=== PATIENT | female | born 1940 | race Caucasian/White ===

== ENCOUNTER 2019-11-12 20:53 | Inpatient (IN) | payer OTHER, MEDICARE ==
--- NOTE | 2019-11-12 21:10 | PDOC ---
Attending Attestation - Resident Resident Name: Alexander Jordan - ED Attending Attestation I have performed the following: I have examined & evaluated the patient, The case was reviewed & discussed with the resident, I agree w/resident's findings & plan - HPI HPI: 11/12/19 23:36 see resident exam - Physicial Exam PE: 11/12/19 23:36 see resident hpi - Medical Decision Making 11/12/19 23:45 79-year-old female with history of bilateral knee replacements status post mechanical fall with large laceration overlying the right patellar region Due to patient's age and history of surgery a CT scan of the brain as well as right knee as well as plain films of the right tib-fib and knee regions were all obtained There is no large displaced fracture though there is a fragment off the medial aspect of the distal femur that is not well imaged secondary to artifact Will call [facility] for further recommendations regarding wound care Ancef 1 g IV Discharge - Discharge Information Problems reviewed: Yes Clinical Impression/Diagnosis: Laceration of knee Condition: Fair - Follow up/Referral Referrals: Vero Everett MD [Primary Care Provider] - - Patient Discharge Instructions - Post Discharge Activity
[2019-11-12] MEDS ORDERED: DIPHTH,PERTUSS(ACELL),TET 0.5 ML DISP.SYRIN IM ONE ×2 (21:28→21:33)
[2019-11-12] MEDS ORDERED: ACETAMINOPHEN 325 MG TABLET (FP) PO ONE ×2 (21:34→21:35)
--- NOTE | 2019-11-12 21:53 | PDOC ---
History of Present Illness - General Chief Complaint: Injury Stated Complaint: FALL, RIGHT KNEE LACERATION Time Seen by Provider: 11/12/19 21:09 - History of Present Illness Initial Comments: 11/12/19 21:47 79 F with HTN, HLD, COPD, CHF BIBA, bilateral knees replacement, from home after a fall. She had a witness mechanical fall on a sticky floor. Minimal bleeding, horizontal cut on the right knee. Her last right knee replacement was on March of this year. Patient has full sensation on the legs,limited ROM on the right knee due the cut. Denies Headache, chest pain, F/C/N/V/D. Not on blood thinner. Denies Head hitting, LOC. Ortho surgeon: Dao Trejo in [facility]. PMHX: as in HPI PSHX: bilat knees replacement. Meds: Allergies: doxycycline. Tob: denies Etoh: denies Rec drugs: denies ROS GENERAL/CONSTITUTIONAL: No fever or chills. No weakness. HEAD, EYES, EARS, NOSE AND THROAT: No change in vision. No ear pain or discharge. No sore throat. CARDIOVASCULAR: No chest pain or shortness of breath RESPIRATORY: No cough, wheezing, or hemoptysis. GASTROINTESTINAL: No nausea, vomiting, diarrhea or constipation. GENITOURINARY: No dysuria, frequency, or change in urination. MUSCULOSKELETAL: +Right knee pain. No neck or back pain. SKIN: No rash NEUROLOGIC: No headache, vertigo, loss of consciousness, or change in strength/sensation. ENDOCRINE: No increased thirst. No abnormal weight change HEMATOLOGIC/LYMPHATIC: No anemia, easy bleeding, or history of blood clots. ALLERGIC/IMMUNOLOGIC: No hives or skin allergy. PE: BP 191/90 GENERAL: Awake, alert, and fully oriented, in no acute distress. OBESE. HEAD: No signs of trauma, normocephalic, atraumatic EYES: PERRLA, EOMI, sclera anicteric, conjunctiva clear ENT: Auricles normal inspection, hearing grossly normal, nares patent, oropharynx clear without exudates. Moist mucosa NECK: Normal ROM, supple, no lymphadenopathy, JVD, or masses LUNGS: No distress, speaks full sentences, clear to auscultation bilaterally HEART: Regular rate and rhythm, normal S1 and S2, no murmurs, rubs or gallops, peripheral pulses normal and equal bilaterally. ABDOMEN: Soft, nontender, normoactive bowel sounds. No guarding, no rebound. No masses EXTREMITIES : pitting edema. right knee horizontal wound 5 cm deep, showing subcutaneous tissues, minimal bleeding. neurovascular intact, able to do straight leg raise, unable to bend knee due to pain. NEUROLOGICAL: Cranial nerves II through XII grossly intact. Normal speech, normal gait, no focal sensorimotor deficits SKIN: Warm, Dry, normal turgor, no rashes or lesions noted Past History - Medical History Allergies/Adverse Reactions: Allergies Allergy/AdvReac Type Severity Reaction Status Date / Time doxycycline Allergy Hives Verified 11/12/19 21:08 Home Medications: Ambulatory Orders Simvastatin [Zocor] 20 mg PO DAILY 08/02/11 Cetirizine HCl [Zyrtec -] 10 mg PO DAILY 10/21/14 Pregabalin [Lyrica -] 300 mg PO BID 10/21/14 Furosemide [Lasix -] 40 mg PO DAILY #30 tablet 05/01/15 Cholecalciferol (Vitamin D3) [Vitamin D3] 1,000 unit PO DAILY 11/11/15 Ferrous Sulfate [Feosol] 325 mg PO DAILY 11/11/15 Ranitidine HCl [Zantac] 150 mg PO DAILY 11/11/15 Benzonatate 100 mg PO PRN PRN 02/01/16 Losartan Potassium 25 mg PO DAILY 02/01/16 Docusate Sodium [Colace] 100 mg PO HS 11/13/19 Umeclidinium Brm/Vilanterol Tr [Anoro Ellipta 62.5-25 Mcg INH] 1 each IH DAILY 11/13/19 Anemia: Yes Asthma: No Cancer: Yes (BASAL CELL CA NOSE) Cardiac Disorders: No CVA: No COPD: No CHF: No Dementia: No Diabetes: No GI Disorders: Yes (GERD,HIATAL HERNIA) Disorders: No HTN: Yes Hypercholesterolemia: Yes Liver Disease: No Seizures: No Thyroid Disease: No - Surgical History Abdominal Surgery: No Appendectomy: No Cardiac Surgery: No Cholecystectomy: No Lung Surgery: No Neurologic Surgery: No Orthopedic Surgery: Yes (L KNEE ARTHROSCOPY) - Immunization History Immunization Up to Date: Yes - Psycho-Social/Smoking History Smoking History: Never smoked Have you smoked in the past 12 months: No If you are a former smoker, when did you quit?: 1984 Information on smoking cessation initiated: No - Substance Abuse Hx (Audit-C & DAST Scrn) How often the patient has a drink containing alcohol: Monthly or less Number of drinks the patient has on a typical day: 1 or 2 How often the patient has six or more drinks on one occasion: Less than monthly Score: In Men: 4 or > Positive; In Women: 3 or > Positive: 2 Screen Result (Pos requires Nsg. Audit-10AR): Negative In the last yr the pt used illegal drug/Rx for NonMed reason: No Score: Yes response is considered Positive: 0 Screen Result (Positive result requires Nsg. DAST-10): Negative *Physical Exam - Vital Signs Last Vital Signs Temp Pulse Resp BP Pulse Ox 98.1 F 98 H 18 191/86 H 96 11/12/19 20:55 11/12/19 20:55 11/12/19 20:55 11/12/19 20:55 11/12/19 20:55 Procedures - Laceration/Wound Repair Right Knee Wound Length: 5.0 to 7.5 cm Wound Explored: clean Wound's Depth, Shape: flap Irrigated w/ Saline: Yes Anesthesia: 2% Lidocaine Amount of Anesthetic (ccs): 10 Wound Debrided: moderate Wound Repaired With: Sutures Suture Size/Type: 3:0, proline Number of Sutures: 30 Layer Closure: Yes Sterile Dressing Applied: Yes ED Treatment Course - LABORATORY CBC & Chemistry Diagram: 11/15/19 06:41 11/15/19 06:41 - RADIOLOGY Radiology Studies Ordered: Category Date Time Status HEAD CT WITHOUT CONTRAST [CT] Stat CT Scan 11/12/19 21:29 Ordered KNEE 3 POS-RIGHT [RAD] Stat Radiology 11/12/19 21:28 Ordered LEG TIB/FIB-RIGHT [RAD] Stat Radiology 11/12/19 21:28 Ordered Medical Decision Making - Medical Decision Making 11/12/19 21:58 concerning for fx Xray of knees 3views, tib/fib, sunrise view. + CAT head noncontrast+ cat scan of lower extremity. tetanus booster +tylenol PO 11/12/19 21:59 11/12/19 23:[address] Trejo in regard to the questionable read of CT: small bony density of the inferomedial region of medical femoral epicondyle , hard to see due to metallic artifact. He said call ortho in house to look at it, possible push contrast to see if leaking, and wash out. 11/12/19 23:19 11/13/19 00:27 Paged Ted . Awaiting. 11/13/19 05:34 Ortho came down to see her. Proceeded to repair. Pain control: tylenol, morphine 4 Antibiotics: ancef. Admit to Internal medicine team for IV antibiotics per ortho. Discharge - Discharge Information Problems reviewed: Yes Clinical Impression/Diagnosis: Laceration of knee History of knee replacement Qualifiers: Laterality: left Qualified Code(s): Z96.652 - Presence of left artificial knee joint Condition: Fair - Follow up/Referral - Patient Discharge Instructions - Post Discharge Activity
[2019-11-12] MEDS ORDERED: ACETAMINOPHEN 325 MG TABLET (FP) ONE (22:06)
[2019-11-13] MEDS ORDERED: ceFAZolin 2 GRAM PREMIX BAG IVPB STA (00:09)
[2019-11-13] MEDS ORDERED: CEFAZOLIN 2 GM/D5W 2 GM/50 ML ML IVPB ONE (01:00)
[2019-11-13 01:38] LABS: EOS % 2.6 % (0-4.5); HEMATOCRIT 31.7 % (32.4-45.2); HEMOGLOBIN 10.4 GM/dL (10.7-15.3); LYMPH % 11.1 % (8-40); MCH 31.9 pg (25.7-33.7); MCHC 32.7 g/dl (32.0-36.0); MEAN CELL VOLUME 97.6 fl (80-96); MEAN PLT VOLUME 11.7 fl (7.5-11.1); MONO % 8.9 % (3.8-10.2); NEUT % 76.4 % (42.8-82.8); PLATELET COUNT 143 K/MM3 (134-434); RBC 3.25 M/mm3 (3.60-5.2); RDW 14.1 % (11.6-15.6); WHITE BLOOD COUNT 11.6 K/mm3 (4.0-10.0)
[2019-11-13 01:56] LABS: ALBUMIN 3.7 g/dl (3.4-5.0); BILIRUBIN,TOTAL 0.1 mg/dL (0.2-1); BLOOD UREA NITROGEN 47.9 mg/dL (7-18); CALCIUM 9.4 mg/dL (8.5-10.1); CREATININE 1.7 mg/dL (0.55-1.3); POTASSIUM 4.6 mmol/L (3.5-5.1); TOT PROT 7.1 g/dl (6.4-8.2)
[2019-11-13 02:10] LABS: INR 0.95 (0.83-1.09); PROTHROMBIN TIME (PATIENT) 11.2 SEC (9.7-13.0)
[2019-11-13 02:13] LABS: ACTIVATED PTT 28.9 SECONDS (25.2-36.5)
[2019-11-13] MEDS ORDERED: LIDOCAINE HCL 2% (20ML MULTI-DOSE VIAL) ONE (02:39)
[2019-11-13] MEDS ORDERED: morphine SULFATE 4 MG/ML VIAL ONE (02:43)
[2019-11-13] MEDS ORDERED: morphine CARPU-JECT 4 MG/1 ML DISP.SYRIN IVPUSH ONE (02:43)
--- NOTE | 2019-11-13 03:10 | CONSULT ---
Consult - text type - Consultation Consultation Note: ORTHOPEDIC SURGERY CONSULTATION NOTE Department of Orthopedic Surgery HISTORY OF PRESENT ILLNESS Ms. Arias is a 79 year old female with a pmhx of HTN, HLD, COPD, CHF BIBA, bilateral knees replacement She presents to [facility] ER after a witnessed mechanical fall onto right knee, now with a laceration over her knee. The orthopedic service was consulted for a rule out traumatic arthrotomy. The injury occurred at home this evening. The patient notes pain and laceration over her right anterior knee. She has a history of bilateral knee replacements, the right knee was done in March [address] Trejo at [facility]. Denies any other injuries. Denies numbness, tingling or other constitutional complaints. Denies tobacco use, drug use, alcohol abuse. The patient lives with family and uses no assistive devices at baseline. FAMILY HISTORY non-contributory REVIEW OF SYMPTOMS A twelve-point review of systems was performed and was negative except as noted in HPI. PHYSICAL EXAM Constitutional: Alert and oriented to person, place, and time. Appears well-developed and well-nourished. No acute distress, appropriate mood and affect. Right Upper Extremity: Skin warm, dry, and intact; no lesions, rashes or ulcers noted. Muscle mass equal and symmetric to contralateral side. No atrophy noted. No masses or effusions noted. No tenderness to palpation all joints; nontender throughout rest of extremity. Full passive and active ROM, free from pain. Joints stable with no pathologic laxity. M/R/U/MSK/AX motor intact; SILT distally; 2+ radial pulses; Cap refill brisk. Tone and reflexes normal. Left Upper Extremity: Skin warm, dry, and intact; no lesions, rashes or ulcers noted. Muscle mass equal and symmetric to contralateral side. No atrophy noted. No masses or effusions noted. No tenderness to palpation all joints; nontender t hroughout rest of extremity. Full passive and active ROM, free from pain. Joints stable with no pathologic laxity. M/R/U/MSK/AX motor intact; SILT distally; 2+ radial pulses; Cap refill brisk. Tone and reflexes normal. Right Lower Extremity: Skin warm, dry. There is a transverse laceration approxmiately 10 cm over the patella. There is a healed vertical incision consistent with knee replacement surgery history, healed and no signs of infection. Muscle mass equal and symmetric to contralateral side. No atrophy noted. No masses or effusions noted. Tender to palpation over the incision. nontender throughout rest of extremity. LROM at knee secondary to pain and laceration. No cords or calf tenderness. No significant calf/ankle edema. Full passive and active ROM of the hip and ank le and foot, free from pain. EHL/TA/GS motor intact; SILT distally; 2+ DP pulses; Cap refill brisk. Tone and reflexes normal. Left Lower Extremity: Skin warm, dry, and intact; no lesions, rashes or ulcers noted. Muscle mass equal and symmetric to contralateral side. No atrophy noted. No masses or effusions noted. No tenderness to palpation all joints; nontender throughout rest of extremity. No cords or calf tenderness No significant calf/ankle edema. Full passive and active ROM, free from pain. Joints stable with no pathologic laxity. EHL/TA/GS motor intact; SILT distally; 2+ DP pulses; Cap refill brisk. Tone and reflexes normal. 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 Hx Alcohol Use No ADL Independent History of Recent Travel No Allergies Allergy/AdvReac Type Severity Reaction Status Date / Time doxycycline Allergy Hives Verified 11/12/19 21:08 Vital Signs (last) Temp Pulse Resp BP Pulse Ox 98.1 F 85 16 183/79 H 97 11/13/19 02:52 11/13/19 02:52 11/13/19 02:52 11/13/19 02:52 11/13/19 02:52 Intake and Output 11/11/19 11/12/19 11/13/19 23:59 23:59 23:59 Other: Weight 210 lb Height 5 ft 2 in Body Mass Index (BMI) 38.4 Weight Measurement Method Est/Stated by Patient Laboratory 11/13/19 01:26 11/13/19 01:26 PT with INR 11.20 SEC (9.7-13.0) 11/13/19 01:46 PTT (Actin FS) 28.9 SECONDS (25.2-36.5) 11/13/19 01:46 IMAGING I personally reviewed all radiographs, CT, and other imaging. They demonstrate no fractures, dislocations, or bony lesions. The radiographs demonstrate adequately placed total knee replacement with no signs of fracture or loosening. The CT shows subcutaneous air, without extension or tracking into the joint and without clear acute fracture. Limited study due to metallic prosthesis. PROCEDURE After informed verbal consent was obtained, a saline load test was initiated for the right knee. Using strict sterile precautions, 5 cc's of 2% Lidocaine was injected into the subcutaneous skin at the location of the superolateral inj ection site. Consequently, again after strict sterile precautions using several betadine swabs to the injection site, 150cc's of sterile normal saline was injected into the joint via a superolateral injection site using an 18 gauge needle. There was no extravasation of the fluid from the open laceration, approximately 50cc's of fluid was able to be aspirated afterwards. This concluded the saline load test, which was negative for communication of the joint and the laceration. Patient tolerated procedure well. ASSESSMENT AND PLAN Ms. Arias is a 79 year old female presenting status post mechanical fall with a subcutaneous laceration with no communication with the joint. Saline load test was negative for arthrotomy. We have reviewed the imaging and clinical findings in detail, as well as their potential implications. We agreed on the following plan: 1. Pain control 2. DVT ppx 3. WBAT RLE 4. Would recommend bedside irrigation and primary closure of the laceration in the ER. 5. Recommend antibiotics for soft tissue laceration 6. Patient should follow up with Dr. Trejo (original orthopedic surgeon who performed right total knee replacement) within the next 2 days. 7. No further orthopedic surgical intervention at this time. The plan was discussed with the patient and her at bedside. The patient was informed of the risk of subcutaneous infection, which could in turn still infect her knee joint. Therefore close outpatient follow up with her orthopedic surgeon and primary care physician is highly recommended for observation. All questions were answered. Thank you for involving our team in the care of this patient.
[2019-11-13] MEDS ORDERED: LOSARTAN POTASSIUM 25 MG TABLET PO ONE (05:37)
--- NOTE | 2019-11-13 05:46 | PN ---
Physical Exam: SUBJECTIVE: Patient seen and examined OBJECTIVE: Vital Signs Period Temp Pulse Resp BP Sys/Villa Pulse Ox Last 24 Hr 98.1 F-98.1 F 85-98 16-18 183-191/79-86 96-97 GENERAL: The patient is awake, alert, and fully oriented, in no acute distress. HEAD: Normal with no signs of trauma. EYES: PERRL, extraocular movements intact, sclera anicteric, conjunctiva clear. No ptosis. ENT: Ears normal, nares patent, oropharynx clear without exudates, moist mucous membranes. NECK: Trachea midline, full range of motion, supple. LUNGS: Breath sounds equal, clear to auscultation bilaterally, no wheezes, no crackles, no accessory muscle use. HEART: Regular rate and rhythm, S1, S2 without murmur, rub or gallop. ABDOMEN: Soft, nontender, nondistended, normoactive bowel sounds, no guarding, no rebound, no hepatosplenomegaly, no masses. EXTREMITIES: 2+ pulses, warm, well-perfused, no edema. NEUROLOGICAL: Cranial nerves II through XII grossly intact. Normal speech, gait not observed. PSYCH: Normal mood, normal affect. SKIN: Warm, dry, normal turgor, no rashes or lesions noted Laboratory Results - last 24 hr 11/13/19 11/13/19 11/13/19 01:26 01:26 01:46 WBC 11.6 H RBC 3.25 L Hgb 10.4 L Hct 31.7 L D MCV 97.6 H MCH 31.9 D MCHC 32.7 RDW 14.1 Plt Count 143 D MPV 11.7 H D Absolute Neuts (auto) 8.9 H Neutrophils % 76.4 Lymphocytes % 11.1 D Monocytes % 8.9 Eosinophils % 2.6 D Basophils % 1.0 D Nucleated RBC % 0 PT with INR 11.20 INR 0.95 PTT (Actin FS) 28.9 Sodium 143 Potassium 4.6 Chloride 110 H Carbon Dioxide 27 Anion Gap 6 L BUN 47.9 H Creatinine 1.7 H Est GFR (CKD-EPI)AfAm 33.13 Est GFR (CKD-EPI)NonAf 28.59 Random Glucose 115 H Calcium 9.4 Total Bilirubin 0.1 L AST 28 ALT 21 Alkaline Phosphatase 91 Total Protein 7.1 Albumin 3.7 Active Medications Generic Name Dose Route Start Last Admin Trade Name Freq PRN Reason Stop Dose Admin Acetaminophen 1,000 mg 11/13/19 05:07 Ofirmev Injection - IVPB 11/14/19 05:08 Q6H PRN PAIN LEVEL 6-10 Docusate Sodium 100 mg 11/13/19 22:00 Colace - PO HS JAVY Furosemide 40 mg 11/13/19 10:00 Lasix - PO DAILY [facility] Heparin Sodium (Porcine) 5,000 unit 11/13/19 06:00 Heparin - SQ TID [facility] Ampicillin Sodium/Sulbactam 100 mls @ 200 mls/hr 11/13/19 09:00 Sodium 3 gm/ Sodium Chloride IVPB Q6H-IV JAVY Lactated Ringer's 1,000 ml in 1,000 mls @ 42 mls/hr 11/13/19 05:45 Lactated Ringers Solution IV ASDIR JAVY Losartan Potassium 25 mg 11/13/19 10:00 Cozaar - PO DAILY JAVY Losartan Potassium 25 mg 11/13/19 05:37 Cozaar - PO 11/13/19 05:38 ONCE ONE Morphine Sulfate 2 mg 11/13/19 05:34 Morphine Injection - IVPUSH Q4H PRN PAIN LEVEL 6-10 Non-Formulary Medication 20 mg 11/13/19 10:00 Simvastatin [Zocor] PO DAILY [facility] Non-Formulary Medication 300 mg 11/13/19 10:00 Pregabalin [Lyrica -] PO BID [facility] ASSESSMENT/PLAN: Pt is a 79 yo F with PMH of HTN, HLD, COPD, CHF, CKD Stage 4, trigeminal neuralgia and b/l knee replacements (2016; 2019) being admitted for R knee subcutaneous laceration (s/p mechanical fall) with concern for possible soft tissue infection. #R Knee Subcutaneous Laceration (s/p mechanical fall) Laceration is horizontal (approximately 12-15 cm) and approximately 5 cm deep Laceration has now been sutured - Ortho onboard; pt examined with no communication to the joint, no surgical intervention needed at this time; recommended antibiotics for soft tissue infection - pt started on IV Unasyn 3 q6h - pain control with IV Morphine 2 q4h - gentle hydration with LR @ 42 cc/hr #Hx of Stage 4 CKD Pt followed by legal billing specialist Dr. Shelton outpatient Reports that this is her new baseline - can consider nephrology consult - monitor lytes, BUN, Cr #Hx of CHF - continue home po lasix 40 daily - clarify as pt reports taking it every other day.\ ATTENDING PHYSICIAN STATEMENT I saw and evaluated the patient. I reviewed the resident's note and discussed the case with the resident. I agree with the resident's findings and plan as documented. SUBJECTIVE: OBJECTIVE: ASSESSMENT AND PLAN:
[2019-11-13] MEDS ORDERED: MORPHINE SULFATE 2 MG/ML VIAL IVPUSH PRN (05:50)
[2019-11-13] MEDS ORDERED: LOSARTAN POTASSIUM 50 MG TABLET (FP) ONE (05:57)
[2019-11-13] MEDS ORDERED: HEPARIN NA (PORCINE) 5,000 UNITS/ML 1ML VIAL ONE (05:57)
[2019-11-13] MEDS: LACTATED RINGERS SOLUTION 1,000 ML/1,000 ML INFUS.BAG IV SCH (06:13)
--- NOTE | 2019-11-13 06:13 | HP ---
CHIEF COMPLAINT: R knee laceration PCP: Dr. Everett HISTORY OF PRESENT ILLNESS: Pt is a 79 yo F with PMH of HTN, HLD, COPD, CHF, CKD Stage 4, trigeminal neuralgia and b/l knee replacements (2016; 2019) who was BIBA after a witnessed mechanical fall at home on a sticky floor. Pt sustained a large R knee ho rizontal laceration. Denies fever, chills, head trauma, loss of consciousness, palpitations for or after the fall, lightheadedness, headache, chest pain, shortness of breath, nausea, vomiting, changes in urinary habits, constipation, and diarrhea. ER course was notable for: (1) CT Head negative (2) CT of lower extremity with subcutaneous air without extension or tracking into the joint and without clear acute fracture. (3) Pt given IV morphine and laceration sutured up Recent Travel: none Sick Contacts: none PAST MEDICAL HISTORY: as per hpi PAST SURGICAL HISTORY: as per hpi Family Hx - none Social History: Pt lives with at home. Independent in most daily activities. Smoking: denies Alcohol: denies Drugs: denies Allergies doxycycline Allergy (Verified 11/12/19 21:08) Hives HOME MEDICATIONS: Home Medications Medication Instructions Recorded Simvastatin [Zocor] 20 mg PO DAILY 08/02/11 Cetirizine HCl [Zyrtec -] 10 mg PO DAILY 10/21/14 Pregabalin [Lyrica -] 300 mg PO BID 10/21/14 Furosemide [Lasix -] 40 mg PO DAILY #30 tablet 05/01/15 Cholecalciferol (Vitamin D3) 1,000 unit PO DAILY 11/11/15 [Vitamin D3] Ferrous Sulfate [Feosol] 325 mg PO DAILY 11/11/15 Ranitidine HCl [Zantac] 150 mg PO DAILY 11/11/15 Benzonatate 100 mg PO PRN PRN 02/01/16 Losartan Potassium 25 mg PO DAILY 02/01/16 Docusate Sodium [Colace] 100 mg PO HS 11/13/19 Umeclidinium Brm/Vilanterol Tr 1 each IH DAILY 11/13/19 [Anoro Ellipta 62.5-25 Mcg INH] REVIEW OF SYSTEMS as per HPI. PHYSICAL EXAMINATION Vital Signs - 24 hr 08/19/20 08/20/20 08/20/20 20:55 02:52 04:51 Temperature 98.1 F 98.1 F Pulse Rate 98 H Pulse Rate [ 85 Left] Respiratory 18 16 Rate Blood Pressure 191/86 H Blood Pressure 183/79 H [Arm] O2 Sat by Pulse 96 97 96 Oximetry (%) GENERAL: Awake, alert, and fully oriented, in no acute distress. HEAD: Normal with no signs of trauma. EYES: Pupils equal, round and reactive to light, extraocular movements intact, sclera anicteric, conjunctiva clear. EARS, NOSE, THROAT: oropharynx clear without exudates. Moist mucous membranes. NECK: Normal range of motion, supple without lymphadenopathy, JVD, or masses. LUNGS: Breath sounds equal, clear to auscultation bilaterally. No wheezes, and no crackles. No accessory muscle use. HEART: Regular rate and rhythm, normal S1 and S2 without murmur, rub or gallop. ABDOMEN: Soft, nontender, not distended, normoactive bowel sounds MUSCULOSKELETAL: Moving all extremities except RLE equally and spontaneously; ROM of RLE limited due to laceration UPPER EXTREMITIES: 2+ pulses, warm, well-perfused. LOWER EXTREMITIES: 2+ pulses, warm, well-perfused. Some mild pitting edema. RLE with 10 cm laceration on R anterior knee. Minimal bleeding. No crepitus. NEUROLOGICAL: Cranial nerves II-XII intact. Normal speech. Normal gait. Sensation around laceration intact. PSYCHIATRIC: Cooperative. Good eye contact. Appropriate mood and affect. SKIN: Warm, dry, normal turgor. Laboratory Results - last 24 hr 11/13/19 11/13/19 11/13/19 01:26 01:26 01:46 WBC 11.6 H RBC 3.25 L Hgb 10.4 L Hct 31.7 L D MCV 97.6 H MCH 31.9 D MCHC 32.7 RDW 14.1 Plt Count 143 D MPV 11.7 H D Absolute Neuts (auto) 8.9 H Neutrophils % 76.4 Lymphocytes % 11.1 D Monocytes % 8.9 Eosinophils % 2.6 D Basophils % 1.0 D Nucleated RBC % 0 PT with INR 11.20 INR 0.95 PTT (Actin FS) 28.9 Sodium 143 Potassium 4.6 Chloride 110 H Carbon Dioxide 27 Anion Gap 6 L BUN 47.9 H Creatinine 1.7 H Est GFR (CKD-EPI)AfAm 33.13 Est GFR (CKD-EPI)NonAf 28.59 Random Glucose 115 H Calcium 9.4 Total Bilirubin 0.1 L AST 28 ALT 21 Alkaline Phosphatase 91 Total Protein 7.1 Albumin 3.7 ASSESSMENT/PLAN: Pt is a 79 yo F with PMH of HTN, HLD, COPD, CHF, CKD Stage 4, trigeminal neuralgia and b/l knee replacements (2016; 2019) being admitted for R knee subcutaneous laceration (s/p mechanical fall) with concern for possible soft tissue infection. #R Knee Subcutaneous Laceration (s/p mechanical fall) Laceration is horizontal (approximately 10 cm) and approximately 5 cm deep on the anterior aspect of her R knee. Laceration has now been sutured Lower ext CT showing subcutaneous air without extension or tracking into the joint and without clear acute fracture. Study limited d/t metallic prosthesis/ CT head negative - Ortho consulted by ED; pt examined with no communication to the joint, no surgical intervention needed at this time; recommended antibiotics for soft tissue infection - pt started on IV Unasyn 3 q6h - pain control with IV Morphine 2 q4h - gentle hydration with LR @ 42 cc/hr #Hx of Stage 4 CKD Pt followed by [employer] history teacher Dr. Shelton outpatient Pt reports that this is her new baseline - can consider nephrology consult - monitor lytes, BUN, Cr #Hx of CHF - continue home po lasix 40 daily - clarify as pt reports taking it every other day. #Hx of HTN BP elevated in ED; likely 2/2 pain and not having taken her BP medication that day - provide adequate pain control - continue home losartan 25 daily #Hx of HLD - continue home simvastatin 20 daily or equivalent #Hx of Trigeminal Neuralgia - continue home lyrica 300 mg bid #DVT Ppx - Heparin 5000 sq tid #FEN -F - LR @ 42 cc/hr -E - monitor; replete lytes prn -N - low sodium, low fat, renal diet #Dispo - admit to med-surg Family Medical History Family History: As Documented Visit type - Medication Review Med list reviewed for High Risk Meds patients 65 and older: Yes - Emergency Visit Emergency Visit: Yes ED Registration Date: 11/13/19 Care time: The patient presented to the Emergency Department on the above date and was hospitalized for further evaluation of their emergent condition. - New Patient This patient is new to me today: Yes Date on this admission: 11/13/19 - Critical Care Critical Care patient: No ATTENDING PHYSICIAN STATEMENT I saw and evaluated the patient. I reviewed the resident's note and discussed the case with the resident. I agree with the resident's findings and plan as documented. SUBJECTIVE: OBJECTIVE: ASSESSMENT AND PLAN:
[2019-11-13] MEDS: HEPARIN NA (PORCINE) 5,000 UNITS/ML 1ML VIAL SQ SCH ×3 (06:14→21:06)
--- NOTE | 2019-11-13 06:49 | PN ---
Teaching Attending Note Name of Resident: Joyce Candelaria ATTENDING PHYSICIAN STATEMENT I saw and evaluated the patient. I reviewed the resident's note and discussed the case with the resident. I agree with the resident's findings and plan as documented. SUBJECTIVE: 79 F with HTN, HLD, COPD, CHF, s/p b/l lnee replacement was BIBA after a fall on a sticky floor. She sustained left knee horizontal laceration. It was a mechanical fall. No dizziness, lightheadedness, headache, palpitation before or after the fall. She denies chest pain, shortness of breath, nausea,vomiting, fever, constipation, diarrhea. she c/o pain at knee laceration side OBJECTIVE: Last Vital Signs Temp Pulse Resp BP Pulse Ox 98.1 F 85 16 183/79 H 96 11/13/19 02:52 11/13/19 02:52 11/13/19 02:52 11/13/19 02:52 11/13/19 04:51 General Appearance: not in acute distress, obese HEENT: positive: EOMI, GOLDY, Normal ENT Inspection, Normal Voice Neck: positive: Trachea midline, Normal Thyroid Respiratory/Chest: positive: Lungs Clear b/l, no added sounds Cardiovascular: positive: Regular Rhythm, Regular Rate, S1, S2, No MRG Gastrointestinal/Abdominal: positive: Normal Bowel Sounds, Soft, non tender Musculoskeletal: right knee laceration wound 5 cm with exposed subcutaneous tissue, restricted ROM , R leg 1 + pitting g edema Neurologic: positive: animal caretaker II-XII NML intact, A&ox3, no focal neurologic deficit ASSESSMENT AND PLAN: s/p mechanical fall R knee laceration wound s/p suturing and closure HTN, HLD, COPD, CHF, CKD ? ALVAREZ on CKD macrocytic anemia Admit to floor Gentle hydration CXR Orthopedic consult appreciated. no surgical intervention. IV unasyn analgesia with morphine 2 mg q 4 PRN DVT ppx Resume home meds get records from patient's call person regarding work up and kidney function test. would Hold off on ALVAREZ work up for now HTN - uncontrolled. resume home medications include now Discussed with resident staff in details
[2019-11-13] MEDS: PREGABALIN 100 MG CAPSULE PO SCH ×2 (09:28→21:06)
[2019-11-13] MEDS: LOSARTAN POTASSIUM 25 MG TABLET PO SCH (09:28)
[2019-11-13] MEDS: ACETAMINOPHEN 1000 MG/100 ML VIAL (NON FORMULARY) IVPB PRN (09:29)
[2019-11-13] MEDS: FUROSEMIDE 40 MG TABLET (FP) PO SCH (09:29)
[2019-11-13] MEDS: AMPICILLIN NA/SULBACTAM NA 3 GM in SODIUM CHLORIDE 100 ML IVPB SCH ×2 (10:48→16:26)
--- NOTE | 2019-11-13 14:06 | PN ---
Progress Note, Physician History of Present Illness: 79 year old female with a pmhx of HTN, HLD, COPD, CHF BIBA, bilateral knees replacement She presents to [facility] ER after a witnessed mechanical fall onto right knee, now with a laceration over her knee. The orthopedic service was consulted for a rule out traumatic arthrotomy. The injury occurred at home this evening. The patient notes pain and laceration over her right anterior knee. She has a history of bilateral knee replacements, the right knee was done in March [address] Trejo at [facility]. Denies any other injuries. Denies numbness, tingling or other constitutional complaints. Denies tobacco use, drug use, alcohol abuse. The patient lives with family and uses no assistive devices at baseline. - Current Medication List Current Medications: Active Medications Acetaminophen (Ofirmev Injection -) 1,000 mg IVPB Q6H PRN PRN Reason: PAIN LEVEL 6-10 Stop: 11/14/19 05:08 Last Admin: 11/13/19 09:29 Dose: 1,000 mg Documented by: Atorvastatin Calcium (Lipitor -) 10 mg PO HS [facility] Docusate Sodium (Colace -) 100 mg PO HS [facility] Furosemide (Lasix -) 40 mg PO DAILY [facility] Last Admin: 11/13/19 09:29 Dose: 40 mg Documented by: Heparin Sodium (Porcine) (Heparin -) 5,000 unit SQ TID [facility] Last Admin: 11/13/19 06:14 Dose: 5,000 unit Documented by: Ampicillin Sodium/Sulbactam (Sodium 3 gm/ Sodium Chloride) 100 mls @ 200 mls/hr IVPB Q6H-IV [facility] Last Admin: 11/13/19 10:48 Dose: 200 mls/hr Documented by: Lactated Ringer's (Lactated Ringers Solution) 1,000 ml in 1,000 mls @ 42 mls/hr IV ASDIR [facility] Last Admin: 11/13/19 06:13 Dose: 42 mls/hr Documented by: Losartan Potassium (Cozaar -) 25 mg PO DAILY [facility] Last Admin: 11/13/19 09:28 Dose: 25 mg Documented by: Morphine Sulfate (Morphine Sulfate) 2 mg IVPUSH Q4H PRN PRN Reason: PAIN LEVEL 6-10 Pregabalin (Lyrica -) 300 mg PO BID [facility] Last Admin: 11/13/19 09:28 Dose: 300 mg Documented by: - Objective Vital Signs: Vital Signs Temperature 98.3 F 11/13/19 12:16 Pulse Rate 74 11/13/19 12:16 Respiratory Rate 18 11/13/19 12:16 Blood Pressure 131/73 11/13/19 12:16 O2 Sat by Pulse Oximetry (%) 95 11/13/19 12:16 Labs: CBC, BMP 11/13/19 01:26 11/13/19 01:26 INR, PTT INR 0.95 (0.83-1.09) 11/13/19 01:46
--- NOTE | 2019-11-13 14:18 | CON.ID ---
Consult Consult Specialty:: infectious diseases Referred by:: Reason for Consultation:: wound on the rt knee s/p fall - History of Present Illness Chief Complaint: pain in the knee joint History of Present Illness: 79 year old female with a pmhx of HTN, HLD, COPD, CHF BIBA, bilateral knees replacement who had a witnessed mechanical fall onto right knee, now with a laceration over her knee. The injury occurred at home this evening. The patient notes pain and laceration over her right anterior knee. She has a history of bilateral knee replacements, the right knee was done in [place] [address] Trejo at [facility]. Denies any other injuries. Denies numbness, tingling or other constitutional complaints. Denies tobacco use, drug use, alcohol abuse. The patient lives with family and uses no assistive devices at baseline. patient was seen and the wound was washed out and wound was sutured - History Source History Provided By: Patient Limitations to Obtaining History: No Limitations - Past Medical History SPECIALIZED DEVELOPER: Yes: Other (trigeminal neuralgia) Cardio/Vascular: Yes: HTN, Hyperlipdemia ...: No Dermatology: Yes: Basal Cell - Alcohol/Substance Use Hx Alcohol Use: No - Smoking History Smoking history: Never smoked Have you smoked in the past 12 months: No If you are a former smoker, when did you quit?: 1984 - Social History ADL: Independent History of Recent Travel: No Home Medications - Allergies Allergies/Adverse Reactions: Allergies Allergy/AdvReac Type Severity Reaction Status Date / Time doxycycline Allergy Hives Verified 11/12/19 21:08 - Home Medications Home Medications: Ambulatory Orders RX: Simvastatin [Zocor] 20 mg PO DAILY 08/02/11 RX: Cetirizine HCl [Zyrtec -] 10 mg PO DAILY 10/21/14 RX: Pregabalin [Lyrica -] 300 mg PO BID 10/21/14 RX: Furosemide [Lasix -] 40 mg PO DAILY #30 tablet 05/01/15 RX: Cholecalciferol (Vitamin D3) [Vitamin D3] 1,000 unit PO DAILY 11/11/15 RX: Ferrous Sulfate [Feosol] 325 mg PO DAILY 11/11/15 RX: Ranitidine HCl [Zantac] 150 mg PO DAILY 11/11/15 RX: Benzonatate 100 mg PO PRN PRN 02/01/16 RX: Losartan Potassium 25 mg PO DAILY 02/01/16 Docusate Sodium [Colace] 100 mg PO HS 11/13/19 Umeclidinium Brm/Vilanterol Tr [Anoro Ellipta 62.5-25 Mcg INH] 1 each IH DAILY 11/13/19 Review of Systems - Review of Systems Constitutional: reports: No Symptoms Eyes: reports: No Symptoms HENT: reports: No Symptoms Neck: reports: No Symptoms Cardiovascular: reports: No Symptoms Respiratory: reports: No Symptoms Gastrointestinal: reports: No Symptoms Genitourinary: reports: No Symptoms Musculoskeletal: reports: Joint Pain Integumentary: reports: Erythema (around rt knee joint), Wound Neurological: reports: No Symptoms Endocrine: reports: No Symptoms Hematology/Lymphatic: reports: No Symptoms Psychiatric: reports: No Symptoms Physical Exam Vital Signs: Vital Signs Temperature 98.3 F 11/13/19 12:16 Pulse Rate 74 11/13/19 12:16 Respiratory Rate 18 11/13/19 12:16 Blood Pressure 131/73 11/13/19 12:16 O2 Sat by Pulse Oximetry (%) 95 11/13/19 12:16 Constitutional: Yes: Well Nourished, Calm, Mild Distress Eyes: Yes: Conjunctiva Clear HENT: Yes: Atraumatic, Normocephalic Neck: Yes: Supple, Trachea Midline Cardiovascular: Yes: Regular Rate and Rhythm Respiratory: Yes: Regular, CTA Bilaterally Gastrointestinal: Yes: Normal Bowel Sounds, Soft Musculoskeletal: Yes: WNL Extremities: Yes: Other Integumentary: Yes: Erythema (around knee joint) Wound/Incision: Yes: Clean/Dry, Dressing Dry and Intact, Dressing Removed Neurological: Yes: Alert, Oriented Psychiatric: Yes: Alert, Oriented Labs: CBC, BMP 11/13/19 01:26 11/13/19 01:26 Imaging - Results Chest X-ray: Report Reviewed, Image Reviewed Cat Scan: Report Reviewed, Image Reviewed Assessment/Plan Problem List - Problems (1) Laceration of knee Code(s): S81.019A - LACERATION WITHOUT FOREIGN BODY, UNSP KNEE, INIT ENCNTR (2) Anemia Code(s): D64.9 - ANEMIA, UNSPECIFIED (3) Diastolic dysfunction with heart failure Code(s): I50.30 - UNSPECIFIED DIASTOLIC (CONGESTIVE) HEART FAILURE Qualifiers: Heart failure chronicity: acute on chronic Qualified Code(s): I50.33 - Acute on chronic diastolic (congestive) heart failure (4) History of knee replacement Code(s): Z96.659 - PRESENCE OF UNSPECIFIED ARTIFICIAL KNEE JOINT Qualifiers: Laterality: left Qualified Code(s): Z96.652 - Presence of left artificial knee joint (5) Hypertension Code(s): I10 - ESSENTIAL (PRIMARY) HYPERTENSION Qualifiers: Hypertension type: essential hypertension Qualified Code(s): I10 - Essential (primary) hypertension plan i am going to start empirically on abx as patient has knee repelacement done recently await for results monitor for swelling
[2019-11-13] MEDS ORDERED: PIPERACILLIN/TAZOBACTAM 2.25 GM VIAL IVPB ONE ×2 (16:53→20:39)
[2019-11-13] MEDS ORDERED: DEXTROSE 5%-WATER - 50 ML IVPB ONE ×2 (16:53→20:39)
[2019-11-13] MEDS: PIPERACILLIN/TAZOB 2.25 GM 2.25 GM in DEXTROSE 5%-WATER - 50 ML IVPB SCH ×2 (17:03→21:04)
[2019-11-13] MEDS: ATORVASTATIN CA 10 MG TABLET (FP) PO SCH (21:06)
[2019-11-13] MEDS: DOCUSATE SODIUM 100 MG CAPSULE (FP) PO SCH (21:06)
[2019-11-14] MEDS ORDERED: PIPERACILLIN/TAZOBACTAM 2.25 GM VIAL IVPB ONE ×4 (01:29→20:04)
[2019-11-14] MEDS ORDERED: DEXTROSE 5%-WATER - 50 ML IVPB ONE ×4 (01:30→20:05)
[2019-11-14] MEDS: PIPERACILLIN/TAZOB 2.25 GM 2.25 GM in DEXTROSE 5%-WATER - 50 ML IVPB SCH ×4 (03:16→20:23)
[2019-11-14] MEDS: LACTATED RINGERS SOLUTION 1,000 ML/1,000 ML INFUS.BAG IV SCH ×2 (03:17→06:12)
[2019-11-14] MEDS: ACETAMINOPHEN 1000 MG/100 ML VIAL (NON FORMULARY) IVPB PRN (03:24)
[2019-11-14] MEDS: HEPARIN NA (PORCINE) 5,000 UNITS/ML 1ML VIAL SQ SCH ×3 (06:36→21:24)
[2019-11-14] MEDS: FUROSEMIDE 40 MG TABLET (FP) PO SCH (09:42)
[2019-11-14] MEDS: PREGABALIN 100 MG CAPSULE PO SCH ×2 (09:42→21:01)
[2019-11-14] MEDS: LOSARTAN POTASSIUM 25 MG TABLET PO SCH (09:42)
--- NOTE | 2019-11-14 11:37 | PN ---
Progress Note, Physician History of Present Illness: stable no new issues pain - Current Medication List Current Medications: Active Medications Atorvastatin Calcium (Lipitor -) 10 mg PO HS [facility] Last Admin: 11/13/19 21:06 Dose: 10 mg Documented by: Docusate Sodium (Colace -) 100 mg PO HS [facility] Last Admin: 11/13/19 21:06 Dose: Not Given Documented by: Furosemide (Lasix -) 40 mg PO DAILY [facility] Last Admin: 11/14/19 09:42 Dose: 40 mg Documented by: Heparin Sodium (Porcine) (Heparin -) 5,000 unit SQ TID [facility] Last Admin: 11/14/19 06:36 Dose: 5,000 unit Documented by: Lactated Ringer's (Lactated Ringers Solution) 1,000 ml in 1,000 mls @ 42 mls/hr IV ASDIR [facility] Last Admin: 11/14/19 06:12 Dose: Not Given Documented by: Piperacillin Sod/Tazobactam (Sod 2.25 gm/ Dextrose) 50 mls @ 100 mls/hr IVPB Q6H-IV [facility]; Protocol Last Admin: 11/14/19 09:41 Dose: 100 mls/hr Documented by: Losartan Potassium (Cozaar -) 25 mg PO DAILY [facility] Last Admin: 11/14/19 09:42 Dose: 25 mg Documented by: Morphine Sulfate (Morphine Sulfate) 2 mg IVPUSH Q4H PRN PRN Reason: PAIN LEVEL 6-10 Last Admin: 11/13/19 18:11 Dose: 2 mg Documented by: Oxycodone HCl (Roxicodone -) 10 mg PO Q8H PRN PRN Reason: PAIN SCALE 5-10 Pregabalin (Lyrica -) 300 mg PO BID [facility] Last Admin: 11/14/19 09:42 Dose: 300 mg Documented by: - Objective Vital Signs: Vital Signs Temperature 97.9 F 11/14/19 06:00 Pulse Rate 64 11/14/19 06:00 Respiratory Rate 18 11/14/19 06:00 Blood Pressure 119/55 L 11/14/19 06:00 O2 Sat by Pulse Oximetry (%) 95 11/14/19 06:00 Constitutional: Yes: No Distress, Calm, Obese Cardiovascular: Yes: S1, S2 Respiratory: Yes: Regular, CTA Bilaterally Gastrointestinal: Yes: Normal Bowel Sounds, Soft Musculoskeletal: Yes: WNL Extremities: Yes: Other Neurological: Yes: Alert, Oriented Psychiatric: Yes: Alert, Oriented Labs: CBC, BMP 11/13/19 01:26 11/13/19 01:26 INR, PTT INR 0.95 (0.83-1.09) 11/13/19 01:46 Assessment/Plan Problem List - Problems (1) Laceration of knee Code(s): S81.019A - LACERATION WITHOUT FOREIGN BODY, UNSP KNEE, INIT ENCNTR (2) Anemia Code(s): D64.9 - ANEMIA, UNSPECIFIED (3) Diastolic dysfunction with heart failure Code(s): I50.30 - UNSPECIFIED DIASTOLIC (CONGESTIVE) HEART FAILURE Qualifiers: Heart failure chronicity: acute on chronic Qualified Code(s): I50.33 - Acute on chronic diastolic (congestive) heart failure (4) History of knee replacement Code(s): Z96.659 - PRESENCE OF UNSPECIFIED ARTIFICIAL KNEE JOINT Qualifiers: Laterality: left Qualified Code(s): Z96.652 - Presence of left artificial knee joint (5) Hypertension Code(s): I10 - ESSENTIAL (PRIMARY) HYPERTENSION Qualifiers: Hypertension type: essential hypertension Qualified Code(s): I10 - Essential (primary) hypertension plan continue current mgmt ortho on case
[2019-11-14] MEDS: oxyCODONE HCL 5 MG TABLET PO PRN ×2 (12:52→21:02)
--- NOTE | 2019-11-14 18:17 | PN ---
Progress Note, Physician History of Present Illness: Pt was seen By ID Pt is having pain Hydrtocodone 10 Po TID No Fever Limited range of motion of Knee No Chest pain No SOB Pt moved bowels - Current Medication List Current Medications: Active Medications Atorvastatin Calcium (Lipitor -) 10 mg PO HS [facility] Last Admin: 11/13/19 21:06 Dose: 10 mg Documented by: Docusate Sodium (Colace -) 100 mg PO HS [facility] Last Admin: 11/13/19 21:06 Dose: Not Given Documented by: Furosemide (Lasix -) 40 mg PO DAILY [facility] Last Admin: 11/14/19 09:42 Dose: 40 mg Documented by: Heparin Sodium (Porcine) (Heparin -) 5,000 unit SQ TID [facility] Last Admin: 11/14/19 14:59 Dose: 5,000 unit Documented by: Lactated Ringer's (Lactated Ringers Solution) 1,000 ml in 1,000 mls @ 42 mls/hr IV ASDIR [facility] Last Admin: 11/14/19 06:12 Dose: Not Given Documented by: Piperacillin Sod/Tazobactam (Sod 2.25 gm/ Dextrose) 50 mls @ 100 mls/hr IVPB Q6H-IV [facility]; Protocol Last Admin: 11/14/19 15:00 Dose: 100 mls/hr Documented by: Losartan Potassium (Cozaar -) 25 mg PO DAILY [facility] Last Admin: 11/14/19 09:42 Dose: 25 mg Documented by: Oxycodone HCl (Roxicodone -) 10 mg PO Q8H PRN PRN Reason: PAIN SCALE 5-10 Last Admin: 11/14/19 12:52 Dose: 10 mg Documented by: Pregabalin (Lyrica -) 300 mg PO BID [facility] Last Admin: 11/14/19 09:42 Dose: 300 mg Documented by: - Objective Vital Signs: Vital Signs Temperature 98.3 F 11/14/19 14:38 Pulse Rate 78 11/14/19 14:38 Respiratory Rate 18 11/14/19 14:38 Blood Pressure 140/58 L 11/14/19 14:38 O2 Sat by Pulse Oximetry (%) 98 11/14/19 09:00 Constitutional: Yes: No Distress Eyes: Yes: Conjunctiva Clear, EOM Intact HENT: Yes: Atraumatic, Normocephalic Neck: Yes: Supple, Trachea Midline Cardiovascular: Yes: Regular Rate and Rhythm, S1, S2 Respiratory: Yes: Regular, CTA Bilaterally Gastrointestinal: Yes: Normal Bowel Sounds, Soft Edema: No Peripheral Pulses WNL: Yes Labs: CBC, BMP 11/13/19 01:26 11/13/19 01:26 INR, PTT INR 0.95 (0.83-1.09) 11/13/19 01:46 Problem List - Problems (1) Laceration of knee Code(s): S81.019A - LACERATION WITHOUT FOREIGN BODY, UNSP KNEE, INIT ENCNTR (2) Anemia Code(s): D64.9 - ANEMIA, UNSPECIFIED (3) Diastolic dysfunction with heart failure Code(s): I50.30 - UNSPECIFIED DIASTOLIC (CONGESTIVE) HEART FAILURE Qualifiers: Heart failure chronicity: acute on chronic Qualified Code(s): I50.33 - Acute on chronic diastolic (congestive) heart failure (4) History of knee replacement Code(s): Z96.659 - PRESENCE OF UNSPECIFIED ARTIFICIAL KNEE JOINT Qualifiers: Laterality: left Qualified Code(s): Z96.652 - Presence of left artificial knee joint (5) Hypertension Code(s): I10 - ESSENTIAL (PRIMARY) HYPERTENSION Qualifiers: Hypertension type: essential hypertension Qualified Code(s): I10 - Essential (primary) hypertension (6) Pleural effusion associated with pulmonary infection Code(s): J18.9 - PNEUMONIA, UNSPECIFIED ORGANISM; J91.8 - PLEURAL EFFUSION IN OTHER CONDITIONS CLASSIFIED ELSEWHERE (7) Pneumonia Code(s): J18.9 - PNEUMONIA, UNSPECIFIED ORGANISM Qualifiers: Lung location: lower lobe of lung
[2019-11-14] MEDS: DOCUSATE SODIUM 100 MG CAPSULE (FP) PO SCH (21:01)
[2019-11-14] MEDS: ATORVASTATIN CA 10 MG TABLET (FP) PO SCH (21:01)
[2019-11-14] MEDS: FAMOTIDINE 20 MG TABLET PO SCH (21:24)
[2019-11-15] MEDS ORDERED: PIPERACILLIN/TAZOBACTAM 2.25 GM VIAL IVPB ONE ×3 (00:57→21:00)
[2019-11-15] MEDS ORDERED: DEXTROSE 5%-WATER - 50 ML IVPB ONE ×3 (00:58→21:00)
[2019-11-15] MEDS: PIPERACILLIN/TAZOB 2.25 GM 2.25 GM in DEXTROSE 5%-WATER - 50 ML IVPB SCH ×4 (03:16→21:12)
[2019-11-15] MEDS: HEPARIN NA (PORCINE) 5,000 UNITS/ML 1ML VIAL SQ SCH ×3 (05:54→21:12)
[2019-11-15 07:30] LABS: BASO % 0.7 % (0-2.0); EOS % 4.3 % (0-4.5); HEMATOCRIT 27.2 % (32.4-45.2); HEMOGLOBIN 8.8 GM/dL (10.7-15.3); LYMPH % 19.9 % (8-40); MCH 31.6 pg (25.7-33.7); MCHC 32.3 g/dl (32.0-36.0); MEAN CELL VOLUME 97.6 fl (80-96); MEAN PLT VOLUME 11.2 fl (7.5-11.1); MONO % 14.2 % (3.8-10.2); NEUT % 60.9 % (42.8-82.8); PLATELET COUNT 118 K/MM3 (134-434); RBC 2.79 M/mm3 (3.60-5.2); RDW 14.4 % (11.6-15.6); WHITE BLOOD COUNT 6.9 K/mm3 (4.0-10.0)
[2019-11-15 07:49] LABS: BLOOD UREA NITROGEN 41.8 mg/dL (7-18); CALCIUM 8.6 mg/dL (8.5-10.1); CREATININE 2.1 mg/dL (0.55-1.3); POTASSIUM 4.3 mmol/L (3.5-5.1)
[2019-11-15] MEDS ORDERED: PT OWN MED DRAWER 7, Y5N ONE (09:06)
[2019-11-15] MEDS: LACTATED RINGERS SOLUTION 1,000 ML/1,000 ML INFUS.BAG IV SCH (09:09)
[2019-11-15] MEDS: FUROSEMIDE 40 MG TABLET (FP) PO SCH (09:10)
[2019-11-15] MEDS: FAMOTIDINE 20 MG TABLET PO SCH (09:10)
[2019-11-15] MEDS: LOSARTAN POTASSIUM 25 MG TABLET PO SCH (09:10)
[2019-11-15] MEDS: PREGABALIN 100 MG CAPSULE PO SCH ×2 (09:10→21:12)
--- NOTE | 2019-11-15 12:17 | PN ---
Progress Note, Physician History of Present Illness: stable wbc has normalized - Current Medication List Current Medications: Active Medications Atorvastatin Calcium (Lipitor -) 10 mg PO HS [facility] Last Admin: 11/14/19 21:01 Dose: 10 mg Documented by: Docusate Sodium (Colace -) 100 mg PO HS [facility] Last Admin: 11/14/19 21:01 Dose: 100 mg Documented by: Famotidine (Pepcid -) 40 mg PO DAILY [facility] Last Admin: 11/15/19 09:10 Dose: 40 mg Documented by: Furosemide (Lasix -) 40 mg PO DAILY [facility] Last Admin: 11/15/19 09:10 Dose: 40 mg Documented by: Heparin Sodium (Porcine) (Heparin -) 5,000 unit SQ TID [facility] Last Admin: 11/15/19 05:54 Dose: 5,000 unit Documented by: Lactated Ringer's (Lactated Ringers Solution) 1,000 ml in 1,000 mls @ 42 mls/hr IV ASDIR [facility] Last Admin: 11/15/19 09:09 Dose: 42 mls/hr Documented by: Piperacillin Sod/Tazobactam (Sod 2.25 gm/ Dextrose) 50 mls @ 100 mls/hr IVPB Q6H-IV [facility]; Protocol Last Admin: 11/15/19 10:39 Dose: 100 mls/hr Documented by: Losartan Potassium (Cozaar -) 25 mg PO DAILY [facility] Last Admin: 11/15/19 09:10 Dose: 25 mg Documented by: Oxycodone HCl (Roxicodone -) 10 mg PO Q8H PRN PRN Reason: PAIN SCALE 5-10 Last Admin: 11/14/19 21:02 Dose: 10 mg Documented by: Pregabalin (Lyrica -) 300 mg PO BID [facility] Last Admin: 11/15/19 09:10 Dose: 300 mg Documented by: - Objective Vital Signs: Vital Signs Temperature 99.6 F 11/15/19 09:00 Pulse Rate 89 11/15/19 09:00 Respiratory Rate 18 11/15/19 09:00 Blood Pressure 128/44 L 11/15/19 09:00 O2 Sat by Pulse Oximetry (%) 95 11/15/19 09:00 Constitutional: Yes: No Distress, Calm Cardiovascular: Yes: S1, S2 Respiratory: Yes: Regular, CTA Bilaterally Gastrointestinal: Yes: Normal Bowel Sounds, Soft Musculoskeletal: Yes: WNL Extremities: Yes: Other Wound/Incision: Yes: Dressing Dry and Intact Neurological: Yes: Alert, Oriented Psychiatric: Yes: Alert, Oriented Labs: CBC, BMP 11/15/19 06:41 11/15/19 06:41 INR, PTT INR 0.95 (0.83-1.09) 11/13/19 01:46 Assessment/Plan Problem List - Problems (1) Laceration of knee Code(s): S81.019A - LACERATION WITHOUT FOREIGN BODY, UNSP KNEE, INIT ENCNTR (2) Anemia Code(s): D64.9 - ANEMIA, UNSPECIFIED (3) Diastolic dysfunction with heart failure Code(s): I50.30 - UNSPECIFIED DIASTOLIC (CONGESTIVE) HEART FAILURE Qualifiers: Heart failure chronicity: acute on chronic Qualified Code(s): I50.33 - Acute on chronic diastolic (congestive) heart failure (4) History of knee replacement Code(s): Z96.659 - PRESENCE OF UNSPECIFIED ARTIFICIAL KNEE JOINT Qualifiers: Laterality: left Qualified Code(s): Z96.652 - Presence of left artificial knee joint (5) Hypertension Code(s): I10 - ESSENTIAL (PRIMARY) HYPERTENSION Qualifiers: Hypertension type: essential hypertension Qualified Code(s): I10 - Essential (primary) hypertension plan continue current mgmt ortho on case will deescalte abx tomorrow rest as per the team
[2019-11-15] MEDS: oxyCODONE HCL 5 MG TABLET PO PRN (16:46)
[2019-11-15] MEDS: ATORVASTATIN CA 10 MG TABLET (FP) PO SCH (21:12)
[2019-11-15] MEDS: DOCUSATE SODIUM 100 MG CAPSULE (FP) PO SCH (21:12)
--- NOTE | 2019-11-15 23:12 | PN ---
Progress Note, Physician History of Present Illness: Pt feeeling better Pain less with Oxycodone No Fever Pt wanted to go to [facility] as Op we will discuss with clinical social worker Pt is on Home 02 2lit Pt is having cough /robitossin - Current Medication List Current Medications: Active Medications Atorvastatin Calcium (Lipitor -) 10 mg PO HS [facility] Last Admin: 11/15/19 21:12 Dose: 10 mg Documented by: Docusate Sodium (Colace -) 100 mg PO HS [facility] Last Admin: 11/15/19 21:12 Dose: 100 mg Documented by: Famotidine (Pepcid -) 40 mg PO DAILY [facility] Last Admin: 11/15/19 09:10 Dose: 40 mg Documented by: Furosemide (Lasix -) 40 mg PO DAILY [facility] Last Admin: 11/15/19 09:10 Dose: 40 mg Documented by: Heparin Sodium (Porcine) (Heparin -) 5,000 unit SQ TID [facility] Last Admin: 11/15/19 21:12 Dose: 5,000 unit Documented by: Lactated Ringer's (Lactated Ringers Solution) 1,000 ml in 1,000 mls @ 42 mls/hr IV ASDIR [facility] Last Admin: 11/15/19 09:09 Dose: 42 mls/hr Documented by: Piperacillin Sod/Tazobactam (Sod 2.25 gm/ Dextrose) 50 mls @ 100 mls/hr IVPB Q6H-IV [facility]; Protocol Last Admin: 11/15/19 21:12 Dose: 100 mls/hr Documented by: Losartan Potassium (Cozaar -) 25 mg PO DAILY [facility] Last Admin: 11/15/19 09:10 Dose: 25 mg Documented by: Oxycodone HCl (Roxicodone -) 10 mg PO Q8H PRN PRN Reason: PAIN SCALE 5-10 Last Admin: 11/15/19 16:46 Dose: 10 mg Documented by: Pregabalin (Lyrica -) 300 mg PO BID [facility] Last Admin: 11/15/19 21:12 Dose: 300 mg Documented by: - Objective Vital Signs: Vital Signs Temperature 98.3 F 11/15/19 19:54 Pulse Rate 81 11/15/19 19:54 Respiratory Rate 20 11/15/19 21:00 Blood Pressure 113/48 L 11/15/19 19:54 O2 Sat by Pulse Oximetry (%) 99 11/15/19 21:00 Labs: CBC, BMP 11/15/19 06:41 11/15/19 06:41 INR, PTT INR 0.95 (0.83-1.09) 11/13/19 01:46 Problem List - Problems (1) Laceration of knee Code(s): S81.019A - LACERATION WITHOUT FOREIGN BODY, UNSP KNEE, INIT ENCNTR (2) Anemia Code(s): D64.9 - ANEMIA, UNSPECIFIED (3) Diastolic dysfunction with heart failure Code(s): I50.30 - UNSPECIFIED DIASTOLIC (CONGESTIVE) HEART FAILURE Qualifiers: Heart failure chronicity: acute on chronic Qualified Code(s): I50.33 - Acute on chronic diastolic (congestive) heart failure (4) History of knee replacement Code(s): Z96.659 - PRESENCE OF UNSPECIFIED ARTIFICIAL KNEE JOINT Qualifiers: Laterality: left Qualified Code(s): Z96.652 - Presence of left artificial knee joint (5) Hypertension Code(s): I10 - ESSENTIAL (PRIMARY) HYPERTENSION Qualifiers: Hypertension type: essential hypertension Qualified Code(s): I10 - Essential (primary) hypertension (6) Pleural effusion associated with pulmonary infection Code(s): J18.9 - PNEUMONIA, UNSPECIFIED ORGANISM; J91.8 - PLEURAL EFFUSION IN OTHER CONDITIONS CLASSIFIED ELSEWHERE (7) Pneumonia Code(s): J18.9 - PNEUMONIA, UNSPECIFIED ORGANISM Qualifiers: Lung location: lower lobe of lung
[2019-11-16] MEDS: guaiFENesin 200 MG/10 ML 10 ML UNIT-DOSE CUPS PO SCH ×4 (00:13→21:01)
[2019-11-16] MEDS ORDERED: DEXTROSE 5%-WATER - 50 ML IVPB ONE ×2 (00:25→08:38)
[2019-11-16] MEDS ORDERED: PIPERACILLIN/TAZOBACTAM 2.25 GM VIAL IVPB ONE ×2 (00:25→08:37)
[2019-11-16] MEDS: PIPERACILLIN/TAZOB 2.25 GM 2.25 GM in DEXTROSE 5%-WATER - 50 ML IVPB SCH ×2 (02:22→09:14)
[2019-11-16] MEDS: LACTATED RINGERS SOLUTION 1,000 ML/1,000 ML INFUS.BAG IV SCH (06:18)
[2019-11-16] MEDS: HEPARIN NA (PORCINE) 5,000 UNITS/ML 1ML VIAL SQ SCH ×3 (06:18→21:01)
[2019-11-16 08:06] LABS: BASO % 0.5 % (0-2.0); EOS % 4.1 % (0-4.5); HEMATOCRIT 26.4 % (32.4-45.2); HEMOGLOBIN 8.6 GM/dL (10.7-15.3); MCH 32.4 pg (25.7-33.7); MCHC 32.5 g/dl (32.0-36.0); MEAN CELL VOLUME 99.4 fl (80-96); MEAN PLT VOLUME 11.4 fl (7.5-11.1); MONO % 15.5 % (3.8-10.2); NEUT % 64.9 % (42.8-82.8); PLATELET COUNT 104 K/MM3 (134-434); RBC 2.66 M/mm3 (3.60-5.2)
[2019-11-16 08:37] LABS: BLOOD UREA NITROGEN 49.3 mg/dL (7-18); CALCIUM 8.1 mg/dL (8.5-10.1); POTASSIUM 4.3 mmol/L (3.5-5.1)
[2019-11-16] MEDS: LOSARTAN POTASSIUM 25 MG TABLET PO SCH (09:14)
[2019-11-16] MEDS: PREGABALIN 100 MG CAPSULE PO SCH ×2 (09:14→21:01)
[2019-11-16] MEDS: FUROSEMIDE 40 MG TABLET (FP) PO SCH (09:14)
[2019-11-16] MEDS: FAMOTIDINE 20 MG TABLET PO SCH (09:14)
[2019-11-16] MEDS: oxyCODONE HCL 5 MG TABLET PO PRN (11:28)
--- NOTE | 2019-11-16 11:37 | PN ---
Progress Note, Physician History of Present Illness: stable no new issues - Current Medication List Current Medications: Active Medications Atorvastatin Calcium (Lipitor -) 10 mg PO HS [facility] Last Admin: 11/15/19 21:12 Dose: 10 mg Documented by: Docusate Sodium (Colace -) 100 mg PO HS [facility] Last Admin: 11/15/19 21:12 Dose: 100 mg Documented by: Famotidine (Pepcid -) 40 mg PO DAILY [facility] Last Admin: 11/16/19 09:14 Dose: 40 mg Documented by: Furosemide (Lasix -) 40 mg PO DAILY [facility] Last Admin: 11/16/19 09:14 Dose: 40 mg Documented by: Guaifenesin (Robitussin -) 10 ml PO TID [facility] Last Admin: 11/16/19 06:18 Dose: 10 ml Documented by: Heparin Sodium (Porcine) (Heparin -) 5,000 unit SQ TID [facility] Last Admin: 11/16/19 06:18 Dose: 5,000 unit Documented by: Lactated Ringer's (Lactated Ringers Solution) 1,000 ml in 1,000 mls @ 42 mls/hr IV ASDIR [facility] Last Admin: 11/16/19 06:18 Dose: Not Given Documented by: Piperacillin Sod/Tazobactam (Sod 2.25 gm/ Dextrose) 50 mls @ 100 mls/hr IVPB Q6H-IV [facility]; Protocol Last Admin: 11/16/19 09:14 Dose: 100 mls/hr Documented by: Losartan Potassium (Cozaar -) 25 mg PO DAILY [facility] Last Admin: 11/16/19 09:14 Dose: 25 mg Documented by: Oxycodone HCl (Roxicodone -) 10 mg PO Q8H PRN PRN Reason: PAIN SCALE 5-10 Last Admin: 11/16/19 11:28 Dose: 10 mg Documented by: Pregabalin (Lyrica -) 300 mg PO BID [facility] Last Admin: 11/16/19 09:14 Dose: 300 mg Documented by: - Objective Vital Signs: Vital Signs Temperature 98.8 F 11/16/19 06:00 Pulse Rate 75 11/16/19 06:00 Respiratory Rate 20 11/16/19 06:00 Blood Pressure 120/51 L 11/16/19 06:00 O2 Sat by Pulse Oximetry (%) 98 11/16/19 06:00 Constitutional: Yes: No Distress, Calm Gastrointestinal: Yes: Normal Bowel Sounds, Soft Musculoskeletal: Yes: WNL Extremities: Yes: WNL Neurological: Yes: Alert, Oriented Psychiatric: Yes: Alert, Oriented Labs: CBC, BMP 11/16/19 07:20 11/16/19 07:20 INR, PTT INR 0.95 (0.83-1.09) 11/13/19 01:46 Assessment/Plan Problem List - Problems (1) Laceration of knee Code(s): S81.019A - LACERATION WITHOUT FOREIGN BODY, UNSP KNEE, INIT ENCNTR (2) Anemia Code(s): D64.9 - ANEMIA, UNSPECIFIED (3) Diastolic dysfunction with heart failure Code(s): I50.30 - UNSPECIFIED DIASTOLIC (CONGESTIVE) HEART FAILURE Qualifiers: Heart failure chronicity: acute on chronic Qualified Code(s): I50.33 - Acute on chronic diastolic (congestive) heart failure (4) History of knee replacement Code(s): Z96.659 - PRESENCE OF UNSPECIFIED ARTIFICIAL KNEE JOINT Qualifiers: Laterality: left Qualified Code(s): Z96.652 - Presence of left artificial knee joint (5) Hypertension Code(s): I10 - ESSENTIAL (PRIMARY) HYPERTENSION Qualifiers: Hypertension type: essential hypertension Qualified Code(s): I10 - Essential (primary) hypertension plan will change abx to oral rest as per the team
[2019-11-16] MEDS: AMOX TR/POT CLAV 500MG/125MG TABLETS (FP) PO SCH (17:22)
[2019-11-16] MEDS ORDERED: SODIUM CHLORIDE 0.45% 1,000 ML IV SCH (20:30)
--- NOTE | 2019-11-16 20:34 | PN ---
Progress Note, Physician History of Present Illness: Pt having raise BUN/creat Hold IV lasix IV fluids 1/2 NS 60 ml/Hr No Fever WBC normal Pt wanted to go home - Current Medication List Current Medications: Active Medications Amoxicillin/Clavulanate Potassium (Augmentin - 500mg Tablet) 1 tab PO BID@080 0,1730 [facility] Last Admin: 11/16/19 17:22 Dose: 1 tab Documented by: Atorvastatin Calcium (Lipitor -) 10 mg PO [facility] Last Admin: 11/15/19 21:12 Dose: 10 mg Documented by: Docusate Sodium (Colace -) 100 mg PO [facility] Last Admin: 11/15/19 21:12 Dose: 100 mg Documented by: Famotidine (Pepcid -) 40 mg PO DAILY [facility] Last Admin: 11/16/19 09:14 Dose: 40 mg Documented by: Guaifenesin (Robitussin -) 10 ml PO TID [facility] Last Admin: 11/16/19 14:50 Dose: 10 ml Documented by: Heparin Sodium (Porcine) (Heparin -) 5,000 unit SQ TID [facility] Last Admin: 11/16/19 14:50 Dose: 5,000 unit Documented by: Lactated Ringer's (Lactated Ringers Solution) 1,000 ml in 1,000 mls @ 42 mls[facility]hr [facility] Last Admin: 11/16/19 06:18 Dose: Not Given Documented by: Sodium Chloride (1/2 Normal Saline) 1,000 mls @ 50 mls/hr IV ASDIR [facility] Stop: 11/17/19 20:28 Losartan Potassium (Cozaar -) 25 mg PO DAILY [facility] Last Admin: 11/16/19 09:14 Dose: 25 mg Documented by: Oxycodone HCl (Roxicodone -) 10 mg PO Q8H PRN PRN Reason: PAIN SCALE 5-10 Last Admin: 11/16/19 11:28 Dose: 10 mg Documented by: Pregabalin (Lyrica -) 300 mg PO BID [facility] Last Admin: 11/16/19 09:14 Dose: 300 mg Documented by: - Objective Vital Signs: Vital Signs Temperature 98.1 F 11/16/19 19:31 Pulse Rate 78 11/16/19 19:31 Respiratory Rate 20 11/16/19 20:06 Blood Pressure 124/66 11/16/19 19:31 O2 Sat by Pulse Oximetry (%) 95 11/16/19 20:06 Constitutional: Yes: No Distress Eyes: Yes: Conjunctiva Clear, EOM Intact HENT: Yes: Atraumatic, Normocephalic Neck: Yes: Supple, Trachea Midline Cardiovascular: Yes: Regular Rate and Rhythm, S1, S2 Respiratory: Yes: Regular, CTA Bilaterally Gastrointestinal: Yes: Normal Bowel Sounds, Soft Musculoskeletal: Yes: Joint Stiffness Edema: No Peripheral Pulses WNL: Yes Neurological: Yes: Alert, Oriented, Cran Nerves II-XII Intact Labs: CBC, BMP 11/16/19 07:20 11/16/19 07:20 INR, PTT INR 0.95 (0.83-1.09) 11/13/19 01:46 Problem List - Problems (1) Laceration of knee Code(s): S81.019A - LACERATION WITHOUT FOREIGN BODY, UNSP KNEE, INIT ENCNTR (2) Anemia Code(s): D64.9 - ANEMIA, UNSPECIFIED (3) Diastolic dysfunction with heart failure Code(s): I50.30 - UNSPECIFIED DIASTOLIC (CONGESTIVE) HEART FAILURE Qualifiers: Heart failure chronicity: acute on chronic Qualified Code(s): I50.33 - Acute on chronic diastolic (congestive) heart failure (4) History of knee replacement Code(s): Z96.659 - PRESENCE OF UNSPECIFIED ARTIFICIAL KNEE JOINT Qualifiers: Laterality: left Qualified Code(s): Z96.652 - Presence of left artificial knee joint (5) Hypertension Code(s): I10 - ESSENTIAL (PRIMARY) HYPERTENSION Qualifiers: Hypertension type: essential hypertension Qualified Code(s): I10 - Essential (primary) hypertension (6) Pleural effusion associated with pulmonary infection Code(s): J18.9 - PNEUMONIA, UNSPECIFIED ORGANISM; J91.8 - PLEURAL EFFUSION IN OTHER CONDITIONS CLASSIFIED ELSEWHERE (7) Pneumonia Code(s): J18.9 - PNEUMONIA, UNSPECIFIED ORGANISM Qualifiers: Lung location: lower lobe of lung (8) CRF (chronic renal failure) Code(s): N18.9 - CHRONIC KIDNEY DISEASE, UNSPECIFIED (9) ARF (acute renal failure) Code(s): N17.9 - ACUTE KIDNEY FAILURE, UNSPECIFIED (10) COPD (chronic obstructive pulmonary disease) Code(s): J44.9 - CHRONIC OBSTRUCTIVE PULMONARY DISEASE, UNSPECIFIED (11) Post-nasal drainage Code(s): R09.82 - POSTNASAL DRIP Assessment/Plan Pt is having raise in BUN/Creat Pt will off lasix Pt will have IV fluids for 24 h No Fever COUGH due to post nasal Drip
[2019-11-16] MEDS: DOCUSATE SODIUM 100 MG CAPSULE (FP) PO SCH (21:01)
[2019-11-16] MEDS: ATORVASTATIN CA 10 MG TABLET (FP) PO SCH (21:01)
[2019-11-17] MEDS: guaiFENesin 200 MG/10 ML 10 ML UNIT-DOSE CUPS PO SCH ×2 (05:20→13:50)
[2019-11-17] MEDS: HEPARIN NA (PORCINE) 5,000 UNITS/ML 1ML VIAL SQ SCH ×2 (05:20→13:50)
[2019-11-17 06:04] VITALS: BP 106/48; PULSE 76; TEMP 98.6
[2019-11-17] MEDS ORDERED: PT OWN MED DRAWER 7, Y5N ONE (09:50)
[2019-11-17] MEDS: LACTATED RINGERS SOLUTION 1,000 ML/1,000 ML INFUS.BAG IV SCH (09:51)
[2019-11-17] MEDS: PREGABALIN 100 MG CAPSULE PO SCH (09:52)
[2019-11-17] MEDS: AMOX TR/POT CLAV 500MG/125MG TABLETS (FP) PO SCH (09:52)
[2019-11-17] MEDS: LOSARTAN POTASSIUM 25 MG TABLET PO SCH (09:52)
[2019-11-17] MEDS: FAMOTIDINE 20 MG TABLET PO SCH (09:52)
[2019-11-17 11:11] VITALS: BMI 44.2
--- NOTE | 2019-11-17 11:28 | PN ---
Progress Note, Physician History of Present Illness: Pt wanted to home FU with ortho as OP on Wed No Fever Rt knee is felixasable Pt is mobile Changed to Po antibiotics - Current Medication List Current Medications: Active Medications Amoxicillin/Clavulanate Potassium (Augmentin - 500mg Tablet) 1 tab PO BID@0800,1730 [facility] Last Admin: 11/17/19 09:52 Dose: 1 tab Documented by: Atorvastatin Calcium (Lipitor -) 10 mg PO [facility] Last Admin: 11/16/19 21:01 Dose: 10 mg Documented by: Docusate Sodium (Colace -) 100 mg PO [facility] Last Admin: 11/16/19 21:01 Dose: 100 mg Documented by: Famotidine (Pepcid -) 40 mg PO DAILY [facility] Last Admin: 11/17/19 09:52 Dose: 40 mg Documented by: Guaifenesin (Robitussin -) 10 ml PO TID [facility] Last Admin: 11/17/19 05:20 Dose: 10 ml Documented by: Heparin Sodium (Porcine) (Heparin -) 5,000 unit SQ TID [facility] Last Admin: 11/17/19 05:20 Dose: 5,000 unit Documented by: Lactated Ringer's (Lactated Ringers Solution) 1,000 ml in 1,000 mls @ 42 mls/hr IV ASDIR [facility] Last Admin: 11/17/19 09:51 Dose: Not Given Documented by: Sodium Chloride (1/2 Normal Saline) 1,000 mls @ 50 mls/hr IV ASDIR [facility] Stop: 11/17/19 20:28 Last Admin: 11/16/19 21:01 Dose: 50 mls/hr Documented by: Losartan Potassium (Cozaar -) 25 mg PO DAILY [facility] Last Admin: 11/17/19 09:52 Dose: 25 mg Documented by: Oxycodone HCl (Roxicodone -) 10 mg PO Q8H PRN PRN Reason: PAIN SCALE 5-10 Last Admin: 11/16/19 11:28 Dose: 10 mg Documented by: Pregabalin (Lyrica -) 300 mg PO BID [facility] Last Admin: 11/17/19 09:52 Dose: 300 mg Documented by: - Objective Vital Signs: Vital Signs Temperature 98.6 F 11/17/19 06:00 Pulse Rate 76 11/17/19 06:00 Respiratory Rate 20 11/17/19 09:00 Blood Pressure 106/48 L 11/17/19 06:00 O2 Sat by Pulse Oximetry (%) 98 11/17/19 09:00 Constitutional: Yes: Calm Eyes: Yes: Conjunctiva Clear, EOM Intact HENT: Yes: Atraumatic, Normocephalic Neck: Yes: Supple, Trachea Midline Cardiovascular: Yes: Regular Rate and Rhythm, S1, S2 Respiratory: Yes: Regular, CTA Bilaterally Gastrointestinal: Yes: Normal Bowel Sounds, Soft Musculoskeletal: Yes: Joint Stiffness Edema: No Peripheral Pulses WNL: Yes Labs: CBC, BMP 11/16/19 07:20 11/16/19 07:20 INR, PTT INR 0.95 (0.83-1.09) 11/13/19 01:46 Problem List - Problems (1) Laceration of knee Code(s): S81.019A - LACERATION WITHOUT FOREIGN BODY, UNSP KNEE, INIT ENCNTR (2) Anemia Code(s): D64.9 - ANEMIA, UNSPECIFIED (3) Diastolic dysfunction with heart failure Code(s): I50.30 - UNSPECIFIED DIASTOLIC (CONGESTIVE) HEART FAILURE Qualifiers: Heart failure chronicity: acute on chronic Qualified Code(s): I50.33 - Acute on chronic diastolic (congestive) heart failure (4) History of knee replacement Code(s): Z96.659 - PRESENCE OF UNSPECIFIED ARTIFICIAL KNEE JOINT Qualifiers: Laterality: left Qualified Code(s): Z96.652 - Presence of left artificial knee joint (5) Hypertension Code(s): I10 - ESSENTIAL (PRIMARY) HYPERTENSION Qualifiers: Hypertension type: essential hypertension Qualified Code(s): I10 - Essential (primary) hypertension (6) Pleural effusion associated with pulmonary infection Code(s): J18.9 - PNEUMONIA, UNSPECIFIED ORGANISM; J91.8 - PLEURAL EFFUSION IN OTHER CONDITIONS CLASSIFIED ELSEWHERE (7) Pneumonia Code(s): J18.9 - PNEUMONIA, UNSPECIFIED ORGANISM Qualifiers: Lung location: lower lobe of lung (8) CRF (chronic renal failure) Code(s): N18.9 - CHRONIC KIDNEY DISEASE, UNSPECIFIED (9) ARF (acute renal failure) Code(s): N17.9 - ACUTE KIDNEY FAILURE, UNSPECIFIED (10) COPD (chronic obstructive pulmonary disease) Code(s): J44.9 - CHRONIC OBSTRUCTIVE PULMONARY DISEASE, UNSPECIFIED (11) Post-nasal drainage Code(s): R09.82 - POSTNASAL DRIP Assessment/Plan Pt is Going home today No Fever Pt will be on Po antibiotics
--- NOTE | 2019-11-17 11:28 | PN ---
Progress Note, Physician History of Present Illness: stable no complaints sating 95 on 2l - Current Medication List Current Medications: Active Medications Amoxicillin/Clavulanate Potassium (Augmentin - 500mg Tablet) 1 tab PO BID@0800,1730 [facility] Last Admin: 11/17/19 09:52 Dose: 1 tab Documented by: Atorvastatin Calcium (Lipitor -) 10 mg PO [facility] Last Admin: 11/16/19 21:01 Dose: 10 mg Documented by: Docusate Sodium (Colace -) 100 mg PO [facility] Last Admin: 11/16/19 21:01 Dose: 100 mg Documented by: Famotidine (Pepcid -) 40 mg PO DAILY [facility] Last Admin: 11/17/19 09:52 Dose: 40 mg Documented by: Guaifenesin (Robitussin -) 10 ml PO TID [facility] Last Admin: 11/17/19 05:20 Dose: 10 ml Documented by: Heparin Sodium (Porcine) (Heparin -) 5,000 unit SQ TID [facility] Last Admin: 11/17/19 05:20 Dose: 5,000 unit Documented by: Lactated Ringer's (Lactated Ringers Solution) 1,000 ml in 1,000 mls @ 42 mls/hr IV ASDIR [facility] Last Admin: 11/17/19 09:51 Dose: Not Given Documented by: Sodium Chloride (1/2 Normal Saline) 1,000 mls @ 50 mls/hr IV ASDIR [facility] Stop: 11/17/19 20:28 Last Admin: 11/16/19 21:01 Dose: 50 mls/hr Documented by: Losartan Potassium (Cozaar -) 25 mg PO DAILY [facility] Last Admin: 11/17/19 09:52 Dose: 25 mg Documented by: Oxycodone HCl (Roxicodone -) 10 mg PO Q8H PRN PRN Reason: PAIN SCALE 5-10 Last Admin: 11/16/19 11:28 Dose: 10 mg Documented by: Pregabalin (Lyrica -) 300 mg PO BID [facility] Last Admin: 11/17/19 09:52 Dose: 300 mg Documented by: - Objective Vital Signs: Vital Signs Temperature 98.6 F 11/17/19 06:00 Pulse Rate 76 11/17/19 06:00 Respiratory Rate 20 11/17/19 09:00 Blood Pressure 106/48 L 11/17/19 06:00 O2 Sat by Pulse Oximetry (%) 98 11/17/19 09:00 Constitutional: Yes: No Distress, Calm Cardiovascular: Yes: S1, S2 Respiratory: Yes: Regular, CTA Bilaterally Gastrointestinal: Yes: Normal Bowel Sounds, Soft Musculoskeletal: Yes: WNL Extremities: Yes: Other Wound/Incision: Yes: Dressing Dry and Intact Neurological: Yes: Alert, Oriented Psychiatric: Yes: Alert, Oriented Labs: CBC, BMP 11/16/19 07:20 11/16/19 07:20 INR, PTT INR 0.95 (0.83-1.09) 11/13/19 01:46 Assessment/Plan Problem List - Problems (1) Laceration of knee Code(s): S81.019A - LACERATION WITHOUT FOREIGN BODY, UNSP KNEE, INIT ENCNTR (2) Anemia Code(s): D64.9 - ANEMIA, UNSPECIFIED (3) Diastolic dysfunction with heart failure Code(s): I50.30 - UNSPECIFIED DIASTOLIC (CONGESTIVE) HEART FAILURE Qualifiers: Heart failure chronicity: acute on chronic Qualified Code(s): I50.33 - Acute on chronic diastolic (congestive) heart failure (4) History of knee replacement Code(s): Z96.659 - PRESENCE OF UNSPECIFIED ARTIFICIAL KNEE JOINT Qualifiers: Laterality: left Qualified Code(s): Z96.652 - Presence of left artificial knee joint (5) Hypertension Code(s): I10 - ESSENTIAL (PRIMARY) HYPERTENSION Qualifiers: Hypertension type: essential hypertension Qualified Code(s): I10 - Essential (primary) hypertension plan continue current mgmt physio rest as per the team
--- NOTE | 2019-11-17 11:32 | DS ---
Physical Examination Vital Signs: Vital Signs Temperature 98.6 F 11/17/19 06:00 Pulse Rate 76 11/17/19 06:00 Respiratory Rate 20 11/17/19 09:00 Blood Pressure 106/48 L 11/17/19 06:00 O2 Sat by Pulse Oximetry (%) 98 11/17/19 09:00 Constitutional: Yes: No Distress Eyes: Yes: Conjunctiva Clear, EOM Intact HENT: Yes: Atraumatic, Normocephalic Neck: Yes: Supple, Trachea Midline Cardiovascular: Yes: Regular Rate and Rhythm, S1, S2 Respiratory: Yes: Regular, CTA Bilaterally Gastrointestinal: Yes: Normal Bowel Sounds, Soft Musculoskeletal: Yes: Joint Stiffness Edema: No Peripheral Pulses WNL: Yes Labs: CBC, BMP 11/16/19 07:20 11/16/19 07:20 Discharge Summary Problems reviewed: Yes Reason For Visit: DECREASED AMBLATION STATUS, FALL, LACERATION OF Current Active Problems ARF (acute renal failure) (Acute) COPD (chronic obstructive pulmonary disease) (Acute) CRF (chronic renal failure) (Acute) History of knee replacement (Acute) Laceration of knee (Acute) Post-nasal drainage (Acute) Hospital Course: 79 year old female with a pmhx of HTN, HLD, COPD, CHF BIBA, bilateral knees replacement She presents to [facility] ER after a witnessed mechanical fall onto right knee, now with a laceration over her knee. The orthopedic service was consulted for a rule out traumatic arthrotomy. The injury occurred at home this evening. The patient notes pain and laceration over her right anterior knee. She has a history of bilateral knee replacements, the right knee was done in March [address] Trejo at [facility]. Denies any other injuries. Denies numbness, tingling or other constitutional complaints. Denies tobacco use, drug use, alcohol abuse. The patient lives with family and uses no assistive devices at baseline. IMAGING I personally reviewed all radiographs, CT, and other imaging. They demonstrate no fractures, dislocations, or bony lesions. The radiographs demonstrate adequately placed total knee replacement with no signs of fracture or loosening. The CT shows subcutaneous air, without extension or tracking into the joint and without clear acute fracture. Limited study due to metallic prosthesis. PROCEDURE After informed verbal consent was obtained, a saline load test was initiated for the right knee. Using strict sterile precautions, 5 cc's of 2% Lidocaine was injected into the subcutaneous skin at the location of the superolateral injection site. Consequently, again after strict sterile precautions using several betadine swabs to the injection site, 150cc's of sterile normal saline was injected into the joint via a superolateral injection site using an 18 gauge needle. There was no extravasation of the fluid from the open laceration, approximately 50cc's of fluid was able to be aspirated afterwards. This concluded the saline load test, which was negative for communication of the joint and the laceration. Patient tolerated procedure well. ASSESSMENT AND PLAN Ms. Arias is a 79 year old female presenting status post mechanical fall with a subcutaneous laceration with no communication with the joint. Saline load test was negative for arthrotomy. We have reviewed the imaging and clinical findings in detail, as well as their potential implications. We agreed on the following plan: 1. Pain control 2. DVT ppx 3. WBAT RLE 4. Would recommend bedside irrigation and primary closure of the laceration in the ER. 5. Recommend antibiotics for soft tissue laceration 6. Patient should follow up with Dr. Trejo (original orthopedic surgeon who performed right total knee replacement) ortho FU on sun 0n11/19/19 as per the patient. FU with PMD in one week Condition: Guarded - Instructions Referrals: Vero Everett MD [Primary Care Provider] - Disposition: [facility]/HOME HEALTH CARE - Home Medications Comprehensive Discharge Medication List: Ambulatory Orders Simvastatin [Zocor] 20 mg PO DAILY 08/02/11 Cetirizine HCl [Zyrtec -] 10 mg PO DAILY 10/21/14 Pregabalin [Lyrica -] 300 mg PO BID 10/21/14 Furosemide [Lasix -] 40 mg PO anternate days #30 tablet 05/01/15 on hold now due to raised BUN/Creat Cholecalciferol (Vitamin D3) [Vitamin D3] 1,000 unit PO DAILY 11/11/15 Ferrous Sulfate [Feosol] 325 mg PO DAILY 11/11/15 Ranitidine HCl [Zantac] 150 mg PO DAILY 11/11/15 Losartan Potassium 25 mg PO DAILY 02/01/16 Docusate Sodium [Colace] 300 mg PO HS 11/13/19 Umeclidinium Brm/Vilanterol Tr [Anoro Ellipta 62.5-25 Mcg INH] 1 each IH DAILY 11/13/19 Augmentin 500 PO BID for 7days Bacid one po BID Pt has her own meds Pt meds sent to [facility]
== END 2019-11-17 13:53 | disposition home health service (06) | DRG 607 ==
LOC: JER 20:53 → JERBED 11-13 03:22 → J8W 11-13 08:51
PROVIDERS: ADMIT Internal Medicine; ATTEND Internal Medicine
PROC: 0SQCXZZ Repair Right Knee Joint, External Approach (ICD-10-PCS; principal; 2019-11-12)
DX: L98.8 Other specified disorders of the skin and subcutaneous tissue (principal); N18.4 Chronic kidney disease, stage 4 (severe); I13.0 Hypertensive heart and chronic kidney disease with heart failure and stage 1 through stage 4 chronic kidney disease, or unspecified chronic kidney disease; I50.32 Chronic diastolic (congestive) heart failure; N17.9 Acute kidney failure, unspecified; Z68.41 Body mass index [BMI] 40.0-44.9, adult; S81.011A Laceration without foreign body, right knee, initial encounter; I20.9 Angina pectoris, unspecified; E78.5 Hyperlipidemia, unspecified; G50.0 Trigeminal neuralgia; J44.9 Chronic obstructive pulmonary disease, unspecified; D64.9 Anemia, unspecified; R09.82 Postnasal drip; W19.XXXA Unspecified fall, initial encounter; Y93.9 Activity, unspecified; Y92.89 Other specified places as the place of occurrence of the external cause; Y99.9 Unspecified external cause status; E66.9 Obesity, unspecified
CPT/HCPCS: 36415; 70450-TC; 71045-TC-FY; 73562-TC-RT-FY; 73590-TC-RT-FY; 73700-TC-RT; 80048; 80053; 85025; 85610; 85730; 90715; 97116-GP; 97161-GP; 99285-25; J0131; J1644; U0003

== ENCOUNTER 2021-09-19 11:37 | Emergency (ER) | payer OTHER, MEDICARE ==
[2021-09-19 12:50] VITALS: BP 162/67; PULSE 101; TEMP 98.5; BMI 46.8
[2021-09-19] MEDS ORDERED: BEBTELOVIMAB (EUA) 175 MG/2 ML VIAL IVPUSH ONE (13:45)
== END 2021-09-19 16:33 | disposition home or self-care (01) ==
LOC: JER 11:37 → JCOVINFU 11:37
PROC: 3E033GC Introduction of Other Therapeutic Substance into Peripheral Vein, Percutaneous Approach (ICD-10-PCS; principal; 2021-09-19)
DX: U07.1 COVID-19 (principal)
CPT/HCPCS: 96374; 99284-25; M0222; Q0222

== ENCOUNTER 2021-10-03 22:06 | Inpatient (IN) | payer OTHER, MEDICARE ==
[2021-10-03] MEDS ORDERED: FUROSEMIDE 40 MG/4 ML INJECTABLE VIAL IVPUSH ONE (23:13)
[2021-10-03 23:25] LABS: BASO % 0.5 % (0-2.0); EOS % 1.7 % (0-4.5); HEMATOCRIT 27.1 % (32.4-45.2); HEMOGLOBIN 8.8 GM/dL (10.7-15.3); LYMPH % 4.3 % (8-40); MCH 30.6 pg (25.7-33.7); MCHC 32.6 g/dl (32.0-36.0); MEAN CELL VOLUME 93.9 fl (80-96); MEAN PLT VOLUME 9.9 fl (7.5-11.1); MONO % 8.7 % (3.8-10.2); NEUT % 84.8 % (42.8-82.8); PLATELET COUNT 195 10^3/uL (134-434); RBC 2.88 M/mm3 (3.60-5.2); RDW 15.2 % (11.6-15.6); WHITE BLOOD COUNT 16.7 K/mm3 (4.0-10.0)
[2021-10-03 23:33] LABS: INR 1.06 (0.83-1.09); PROTHROMBIN TIME (PATIENT) 12.2 SEC (9.7-13.0)
[2021-10-03 23:36] LABS: ACTIVATED PTT 38.6 SECONDS (25.2-36.5)
[2021-10-03 23:45] LABS: CALCIUM 9.5 mg/dL (8.5-10.1)
[2021-10-03 23:47] LABS: ALBUMIN 3.4 g/dl (3.4-5.0); BLOOD UREA NITROGEN 49.3 mg/dL (7-18)
[2021-10-03] MEDS ORDERED: ACETAMINOPHEN 1000 MG/100 ML BAG IVPB ONE (23:48)
[2021-10-03] MEDS ORDERED: AZITHROMYCIN IVPB 500 MG in DEXTROSE 5%-WATER - 250 ML IVPB ONE (23:48)
[2021-10-03 23:49] LABS: CREATININE 1.6 mg/dL (0.55-1.3)
[2021-10-03 23:52] LABS: BILIRUBIN,TOTAL 0.3 mg/dL (0.2-1); TOT PROT 6.7 g/dl (6.4-8.2)
[2021-10-03 23:55] LABS: N-TERMINAL BNP 359.2 pg/ml (5-450)
[2021-10-04] MEDS ORDERED: CEFTRIAXONE 1 MG in DEXTROSE 5%-WATER - 50 ML IVPB ONE (00:36)
[2021-10-04] MEDS ORDERED: CEFTRIAXONE 1 GM/50 ML BAG ONE ×2 (00:41→10:24)
[2021-10-04] MEDS ORDERED: ACETAMINOPHEN INJECTION 100 ML IVPB ONE (00:41)
[2021-10-04] MEDS ORDERED: AZITHROMYCIN IVPB 500 MG/250 ML BAG IVPB ONE ×2 (00:54→11:48)
[2021-10-04] MEDS ORDERED: FUROSEMIDE 40 MG/4 ML INJECTABLE VIAL ONE ×2 (00:54→10:25)
[2021-10-04] MEDS ORDERED: RANITIDINE HCL 150 MG PO SCH (10:00)
[2021-10-04] MEDS ORDERED: ATORVASTATIN CA 20 MG TABLET (FP) ONE (10:22)
[2021-10-04] MEDS ORDERED: LOSARTAN POTASSIUM 50 MG TABLET ONE (10:22)
[2021-10-04] MEDS ORDERED: FERROUS SO4 325 MG TABLET (FP) ONE (10:23)
[2021-10-04] MEDS ORDERED: HEPARIN NA (PORCINE) 5,000 UNITS/ML 1ML VIAL ONE (10:23)
[2021-10-04] MEDS ORDERED: CHOLECALCIFEROL (VIT D3) 1,000 UNIT (25 MCG) TABLET ONE (10:23)
[2021-10-04] MEDS ORDERED: PREGABALIN 100 MG CAPSULE ONE (10:32)
[2021-10-04] MEDS: CHOLECALCIFEROL (VIT D3) 1,000 UNIT (25 MCG) TABLET PO SCH (10:42)
[2021-10-04] MEDS: ATORVASTATIN CA 10 MG TABLET (FP) PO SCH (10:43)
[2021-10-04] MEDS: FUROSEMIDE 40 MG/4 ML INJECTABLE VIAL IVPUSH SCH (10:43)
[2021-10-04] MEDS: FERROUS SO4 325 MG TABLET (FP) PO SCH (10:44)
[2021-10-04] MEDS: HEPARIN NA (PORCINE) 5,000 UNITS/ML 1ML VIAL SQ SCH ×2 (10:44→22:14)
[2021-10-04] MEDS: LOSARTAN POTASSIUM 25 MG TABLET PO SCH (10:44)
[2021-10-04] MEDS: PREGABALIN 100 MG CAPSULE PO SCH ×2 (10:45→22:14)
[2021-10-04] MEDS: CEFTRIAXONE 1 GM in DEXTROSE 5%-WATER - 50 ML IVPB SCH (10:45)
[2021-10-04] MEDS: AZITHROMYCIN IVPB 500 MG/250 ML BAG IVPB SCH (10:53)
[2021-10-04 11:58] LABS: HEMATOCRIT 28.5 % (32.4-45.2); HEMOGLOBIN 9.3 GM/dL (10.7-15.3); MCH 30.6 pg (25.7-33.7); MCHC 32.5 g/dl (32.0-36.0); MEAN CELL VOLUME 94.1 fl (80-96); PLATELET COUNT 187 10^3/uL (134-434); RBC 3.03 M/mm3 (3.60-5.2); RDW 15.4 % (11.6-15.6); WHITE BLOOD COUNT 20.4 K/mm3 (4.0-10.0)
[2021-10-04 12:27] LABS: ALBUMIN 3.3 g/dl (3.4-5.0); BLOOD UREA NITROGEN 44.1 mg/dL (7-18); CALCIUM 9.8 mg/dL (8.5-10.1)
[2021-10-04 12:29] LABS: CREATININE 1.6 mg/dL (0.55-1.3)
[2021-10-04 12:31] LABS: BILIRUBIN,TOTAL 0.3 mg/dL (0.2-1); TOT PROT 6.9 g/dl (6.4-8.2)
[2021-10-04 12:36] LABS: ANISOCYTOSIS 0; HELMET CELLS 0; HOWELL-JOLLY BODIES 0; MACROCYTOSIS 0; OVALOCYTE 0; ROULEAU 0; SICKELED CELLS 0; TARGET CELLS 0; TEAR DROP CELLS 0; TOXIC GRANULATION 0
[2021-10-04 12:41] LABS: ERYTHROCYTE SEDIMENTATION RATE 98 mm/hr (0-30)
[2021-10-04] MEDS: UMECLIDINIUM/VILANTEROL (ANORO) 62.5/25 MCG INHALER IH SCH (13:43)
[2021-10-04] MEDS ORDERED: DEXAMETHASONE SOD PHOSPHATE 10 MG/1 ML VIAL ONE (16:31)
[2021-10-04] MEDS: DEXAMETHASONE SOD PHOSPHATE 10 MG/1 ML VIAL IVPUSH SCH ×2 (16:39→22:14)
[2021-10-04 17:42] LABS: PH,URINE 5.5 (5.0-8.0); URINE APPEARANCE CLEAR; URINE BILIRUBIN NEGATIVE (NEGATIVE); URINE COLOR YELLOW; URINE GLUCOSE (UA) NEGATIVE (NEGATIVE); URINE KETONE NEGATIVE (NEGATIVE); URINE LEUK ESTERASE NEGATIVE (NEGATIVE); URINE NITRITE NEGATIVE (NEGATIVE); URINE PROTEIN NEGATIVE (NEGATIVE); URINE UROBILINOGEN 0.2 mg/dL (0.2-1.0)
[2021-10-04] MEDS: DOCUSATE SODIUM 100 MG CAPSULE (FP) PO SCH (22:14)
[2021-10-04] MEDS: guaiFENesin 600 MG TABLET.ER (FP) PO PRN (22:28)
[2021-10-04] MEDS ORDERED: ALBUTEROL SO4 HFA INHALER IH PRN (23:54)
[2021-10-05 00:49] VITALS: BMI 43.4
[2021-10-05] MEDS: DEXAMETHASONE SOD PHOSPHATE 10 MG/1 ML VIAL IVPUSH SCH ×4 (02:09→21:09)
[2021-10-05 08:52] LABS: HEMATOCRIT 26.9 % (32.4-45.2); HEMOGLOBIN 8.8 GM/dL (10.7-15.3); MCH 30.4 pg (25.7-33.7); MCHC 32.5 g/dl (32.0-36.0); MEAN CELL VOLUME 93.7 fl (80-96); MEAN PLT VOLUME 11.4 fl (7.5-11.1); PLATELET COUNT 172 10^3/uL (134-434); RBC 2.87 M/mm3 (3.60-5.2); WHITE BLOOD COUNT 12.2 K/mm3 (4.0-10.0)
[2021-10-05 09:45] LABS: ANISOCYTOSIS 0; HELMET CELLS 0; HOWELL-JOLLY BODIES 0; MACROCYTOSIS 0; OVALOCYTE 0; ROULEAU 0; SICKELED CELLS 0; TARGET CELLS 0; TEAR DROP CELLS 0; TOXIC GRANULATION 0
[2021-10-05] MEDS: ALLOPURINOL 100 MG TABLET (FP) PO SCH ×2 (10:00→21:08)
[2021-10-05] MEDS: CHOLECALCIFEROL (VIT D3) 1,000 UNIT (25 MCG) TABLET PO SCH (10:00)
[2021-10-05] MEDS: ATORVASTATIN CA 10 MG TABLET (FP) PO SCH (10:00)
[2021-10-05] MEDS: FUROSEMIDE 40 MG/4 ML INJECTABLE VIAL IVPUSH SCH (10:00)
[2021-10-05] MEDS: AZITHROMYCIN IVPB 500 MG/250 ML BAG IVPB SCH (10:00)
[2021-10-05] MEDS: PREGABALIN 100 MG CAPSULE PO SCH ×2 (10:00→21:08)
[2021-10-05] MEDS: CEFTRIAXONE 1 GM in DEXTROSE 5%-WATER - 50 ML IVPB SCH (10:00)
[2021-10-05] MEDS: LOSARTAN POTASSIUM 25 MG TABLET PO SCH (10:00)
[2021-10-05] MEDS: HEPARIN NA (PORCINE) 5,000 UNITS/ML 1ML VIAL SQ SCH ×2 (10:00→21:09)
[2021-10-05] MEDS: FERROUS SO4 325 MG TABLET (FP) PO SCH (10:00)
[2021-10-05] MEDS: UMECLIDINIUM/VILANTEROL (ANORO) 62.5/25 MCG INHALER IH SCH (10:00)
[2021-10-05 11:01] LABS: ALBUMIN 3.1 g/dl (3.4-5.0); BLOOD UREA NITROGEN 49.5 mg/dL (7-18); CALCIUM 9.5 mg/dL (8.5-10.1)
[2021-10-05 11:04] LABS: PHOSPHOROUS 4.3 mg/dL (2.5-4.9)
[2021-10-05 11:06] LABS: BILIRUBIN,TOTAL 0.3 mg/dL (0.2-1); CREATININE 1.8 mg/dL (0.55-1.3); MAGNESIUM 2.4 mg/dL (1.8-2.4); TOT PROT 6.6 g/dl (6.4-8.2)
[2021-10-05] MEDS ORDERED: DEXTROSE 5%-WATER - 50 ML IVPB ONE (11:25)
[2021-10-05] MEDS ORDERED: cefTRIAXone SODIUM 1 GM VIAL ONE (11:25)
[2021-10-05] MEDS: guaiFENesin 600 MG TABLET.ER (FP) PO PRN (11:43)
[2021-10-05 12:33] LABS: LACTIC ACID 2.3 mmol/L (0.4-2.0)
[2021-10-05] MEDS: DOCUSATE SODIUM 100 MG CAPSULE (FP) PO SCH (21:08)
[2021-10-05] MEDS: MONTELUKAST NA 10 MG TABLET PO SCH (21:08)
[2021-10-05] MEDS: ASCORBIC ACID 500 MG TABLET (FP) PO SCH (21:08)
[2021-10-05] MEDS: ACETAMINOPHEN 500 MG TABLET (FP) PO PRN (21:45)
[2021-10-06] MEDS: DEXAMETHASONE SOD PHOSPHATE 10 MG/1 ML VIAL IVPUSH SCH ×3 (02:28→22:06)
[2021-10-06 09:10] LABS: BASO % 0.2 % (0-2.0); HEMATOCRIT 27.9 % (32.4-45.2); HEMOGLOBIN 9.2 GM/dL (10.7-15.3); LYMPH % 3.1 % (8-40); MCH 30.7 pg (25.7-33.7); MCHC 32.8 g/dl (32.0-36.0); MEAN CELL VOLUME 93.6 fl (80-96); MEAN PLT VOLUME 11.3 fl (7.5-11.1); MONO % 6.4 % (3.8-10.2); NEUT % 90.3 % (42.8-82.8); PLATELET COUNT 216 10^3/uL (134-434); RBC 2.98 M/mm3 (3.60-5.2); RDW 15.2 % (11.6-15.6); WHITE BLOOD COUNT 13.3 K/mm3 (4.0-10.0)
[2021-10-06] MEDS: UMECLIDINIUM/VILANTEROL (ANORO) 62.5/25 MCG INHALER IH SCH (09:45)
[2021-10-06] MEDS ORDERED: cefTRIAXone SODIUM 1 GM VIAL ONE (09:46)
[2021-10-06] MEDS ORDERED: DEXTROSE 5%-WATER - 50 ML IVPB ONE (09:46)
[2021-10-06 09:54] LABS: CALCIUM 9.6 mg/dL (8.5-10.1)
[2021-10-06 09:55] LABS: BILIRUBIN,TOTAL 0.3 mg/dL (0.2-1)
[2021-10-06 09:56] LABS: TOT PROT 6.8 g/dl (6.4-8.2)
[2021-10-06 09:58] LABS: CREATININE 1.7 mg/dL (0.55-1.3)
[2021-10-06] MEDS: FUROSEMIDE 40 MG/4 ML INJECTABLE VIAL IVPUSH SCH (10:13)
[2021-10-06] MEDS: HEPARIN NA (PORCINE) 5,000 UNITS/ML 1ML VIAL SQ SCH (10:14)
[2021-10-06] MEDS: CHOLECALCIFEROL (VIT D3) 1,000 UNIT (25 MCG) TABLET PO SCH (10:15)
[2021-10-06] MEDS: FERROUS SO4 325 MG TABLET (FP) PO SCH (10:15)
[2021-10-06] MEDS: PREGABALIN 100 MG CAPSULE PO SCH ×2 (10:15→22:06)
[2021-10-06] MEDS: ATORVASTATIN CA 10 MG TABLET (FP) PO SCH (10:16)
[2021-10-06] MEDS: ALLOPURINOL 100 MG TABLET (FP) PO SCH ×2 (10:17→22:06)
[2021-10-06] MEDS: LOSARTAN POTASSIUM 25 MG TABLET PO SCH (10:17)
[2021-10-06] MEDS: AZITHROMYCIN IVPB 500 MG/250 ML BAG IVPB SCH (10:28)
[2021-10-06] MEDS: CEFTRIAXONE 1 GM in DEXTROSE 5%-WATER - 50 ML IVPB SCH (10:29)
[2021-10-06] MEDS: ACETAMINOPHEN 500 MG TABLET (FP) PO PRN ×2 (13:56→23:14)
[2021-10-06] MEDS: DOCUSATE SODIUM 100 MG CAPSULE (FP) PO SCH ×2 (21:40→22:06)
[2021-10-06] MEDS: MONTELUKAST NA 10 MG TABLET PO SCH (22:05)
[2021-10-06] MEDS: ASCORBIC ACID 500 MG TABLET (FP) PO SCH (22:06)
[2021-10-06] MEDS: METOPROLOL TARTRATE 25 MG TABLET (FP) PO SCH (22:06)
[2021-10-06] MEDS: APIXABAN 5 MG TABLET PO SCH (22:06)
[2021-10-06] MEDS: FAMOTIDINE 10 MG TABLET PO PRN (23:14)
[2021-10-06] MEDS: guaiFENesin 200 MG/10 ML 10 ML UNIT-DOSE CUPS PO PRN (23:15)
[2021-10-07 08:37] LABS: BASO % 0.1 % (0-2.0); HEMATOCRIT 27.4 % (32.4-45.2); HEMOGLOBIN 9.1 GM/dL (10.7-15.3); MCH 30.8 pg (25.7-33.7); MCHC 33.1 g/dl (32.0-36.0); MEAN CELL VOLUME 92.9 fl (80-96); MEAN PLT VOLUME 11.2 fl (7.5-11.1); MONO % 7.3 % (3.8-10.2); NEUT % 84.6 % (42.8-82.8); PLATELET COUNT 224 10^3/uL (134-434); RBC 2.95 M/mm3 (3.60-5.2); RDW 14.7 % (11.6-15.6); WHITE BLOOD COUNT 8.5 K/mm3 (4.0-10.0)
[2021-10-07 09:02] LABS: CALCIUM 9.4 mg/dL (8.5-10.1)
[2021-10-07 09:03] LABS: ALBUMIN 2.7 g/dl (3.4-5.0)
[2021-10-07 09:05] LABS: CREATININE 1.5 mg/dL (0.55-1.3)
[2021-10-07 09:07] LABS: BILIRUBIN,TOTAL 0.2 mg/dL (0.2-1); TOT PROT 6.3 g/dl (6.4-8.2)
[2021-10-07] MEDS ORDERED: cefTRIAXone SODIUM 1 GM VIAL ONE (09:17)
[2021-10-07] MEDS ORDERED: DEXTROSE 5%-WATER - 50 ML IVPB ONE (09:17)
[2021-10-07] MEDS: FERROUS SO4 325 MG TABLET (FP) PO SCH (09:23)
[2021-10-07] MEDS: CHOLECALCIFEROL (VIT D3) 1,000 UNIT (25 MCG) TABLET PO SCH (09:23)
[2021-10-07] MEDS: PREGABALIN 100 MG CAPSULE PO SCH ×2 (09:23→21:52)
[2021-10-07] MEDS: ATORVASTATIN CA 10 MG TABLET (FP) PO SCH (09:23)
[2021-10-07] MEDS: APIXABAN 5 MG TABLET PO SCH ×2 (09:23→21:52)
[2021-10-07] MEDS: LOSARTAN POTASSIUM 25 MG TABLET PO SCH (09:23)
[2021-10-07] MEDS: ALLOPURINOL 100 MG TABLET (FP) PO SCH ×2 (09:24→21:52)
[2021-10-07] MEDS: METOPROLOL TARTRATE 25 MG TABLET (FP) PO SCH ×2 (09:24→21:52)
[2021-10-07] MEDS: DEXAMETHASONE SOD PHOSPHATE 10 MG/1 ML VIAL IVPUSH SCH ×2 (09:24→21:50)
[2021-10-07] MEDS: FUROSEMIDE 40 MG/4 ML INJECTABLE VIAL IVPUSH SCH (09:25)
[2021-10-07] MEDS: UMECLIDINIUM/VILANTEROL (ANORO) 62.5/25 MCG INHALER IH SCH (09:26)
[2021-10-07] MEDS: CEFTRIAXONE 1 GM in DEXTROSE 5%-WATER - 50 ML IVPB SCH (09:26)
[2021-10-07] MEDS: AZITHROMYCIN IVPB 500 MG/250 ML BAG IVPB SCH (10:10)
[2021-10-07] MEDS: ACETAMINOPHEN 500 MG TABLET (FP) PO PRN ×2 (10:10→20:33)
[2021-10-07] MEDS: guaiFENesin 200 MG/10 ML 10 ML UNIT-DOSE CUPS PO PRN (10:10)
[2021-10-07] MEDS: MONTELUKAST NA 10 MG TABLET PO SCH (21:52)
[2021-10-07] MEDS: FAMOTIDINE 10 MG TABLET PO PRN (21:52)
[2021-10-07] MEDS: ASCORBIC ACID 500 MG TABLET (FP) PO SCH (21:52)
[2021-10-07] MEDS: guaiFENesin 600 MG TABLET.ER (FP) PO PRN (21:52)
[2021-10-07] MEDS: guaiFENesin/D-METHORPHAN HB 10 ML UNIT-DOSE CUPS PO PRN (21:53)
[2021-10-08] MEDS ORDERED: DEXTROSE 5%-WATER - 50 ML IVPB ONE (09:22)
[2021-10-08] MEDS ORDERED: cefTRIAXone SODIUM 1 GM VIAL ONE (09:22)
[2021-10-08] MEDS: ATORVASTATIN CA 10 MG TABLET (FP) PO SCH (09:23)
[2021-10-08] MEDS: ALLOPURINOL 100 MG TABLET (FP) PO SCH ×2 (09:23→21:29)
[2021-10-08] MEDS: LOSARTAN POTASSIUM 25 MG TABLET PO SCH (09:23)
[2021-10-08] MEDS: UMECLIDINIUM/VILANTEROL (ANORO) 62.5/25 MCG INHALER IH SCH (09:23)
[2021-10-08] MEDS: METOPROLOL TARTRATE 25 MG TABLET (FP) PO SCH ×2 (09:23→21:29)
[2021-10-08] MEDS: PREGABALIN 100 MG CAPSULE PO SCH ×2 (09:23→21:29)
[2021-10-08] MEDS: CHOLECALCIFEROL (VIT D3) 1,000 UNIT (25 MCG) TABLET PO SCH (09:24)
[2021-10-08] MEDS: DEXAMETHASONE SOD PHOSPHATE 10 MG/1 ML VIAL IVPUSH SCH ×2 (09:24→21:29)
[2021-10-08] MEDS: APIXABAN 5 MG TABLET PO SCH ×2 (09:24→21:29)
[2021-10-08] MEDS: FERROUS SO4 325 MG TABLET (FP) PO SCH (09:24)
[2021-10-08] MEDS: FUROSEMIDE 40 MG/4 ML INJECTABLE VIAL IVPUSH SCH (09:25)
[2021-10-08] MEDS: CEFTRIAXONE 1 GM in DEXTROSE 5%-WATER - 50 ML IVPB SCH (09:26)
[2021-10-08] MEDS: AZITHROMYCIN IVPB 500 MG/250 ML BAG IVPB SCH (10:11)
[2021-10-08] MEDS: ACETAMINOPHEN 500 MG TABLET (FP) PO PRN ×2 (11:02→20:19)
[2021-10-08] MEDS: guaiFENesin/D-METHORPHAN HB 10 ML UNIT-DOSE CUPS PO PRN (17:38)
[2021-10-08] MEDS: guaiFENesin 200 MG/10 ML 10 ML UNIT-DOSE CUPS PO PRN (20:19)
[2021-10-08] MEDS: MONTELUKAST NA 10 MG TABLET PO SCH (21:29)
[2021-10-08] MEDS: DOCUSATE SODIUM 100 MG CAPSULE (FP) PO SCH (21:29)
[2021-10-08] MEDS: ASCORBIC ACID 500 MG TABLET (FP) PO SCH (21:29)
[2021-10-09 08:10] LABS: HEMATOCRIT 28.7 % (32.4-45.2); HEMOGLOBIN 9.4 GM/dL (10.7-15.3); MCH 30.7 pg (25.7-33.7); MCHC 32.9 g/dl (32.0-36.0); MEAN CELL VOLUME 93.4 fl (80-96); MEAN PLT VOLUME 11.3 fl (7.5-11.1); PLATELET COUNT 263 10^3/uL (134-434); RBC 3.08 M/mm3 (3.60-5.2); RDW 15.4 % (11.6-15.6); WHITE BLOOD COUNT 8.4 K/mm3 (4.0-10.0)
[2021-10-09 08:27] LABS: ALBUMIN 2.7 g/dl (3.4-5.0); CALCIUM 9.3 mg/dL (8.5-10.1)
[2021-10-09 08:28] LABS: BLOOD UREA NITROGEN 66.4 mg/dL (7-18)
[2021-10-09 08:30] LABS: BILIRUBIN,TOTAL 0.2 mg/dL (0.2-1); CREATININE 1.6 mg/dL (0.55-1.3); TOT PROT 5.9 g/dl (6.4-8.2)
[2021-10-09] MEDS: PREGABALIN 100 MG CAPSULE PO SCH ×2 (09:22→21:45)
[2021-10-09] MEDS: LOSARTAN POTASSIUM 25 MG TABLET PO SCH (09:22)
[2021-10-09] MEDS: APIXABAN 5 MG TABLET PO SCH ×2 (09:23→21:45)
[2021-10-09] MEDS: ALLOPURINOL 100 MG TABLET (FP) PO SCH ×2 (09:23→21:45)
[2021-10-09] MEDS: FUROSEMIDE 40 MG/4 ML INJECTABLE VIAL IVPUSH SCH (09:23)
[2021-10-09] MEDS: CHOLECALCIFEROL (VIT D3) 1,000 UNIT (25 MCG) TABLET PO SCH (09:23)
[2021-10-09] MEDS: METOPROLOL TARTRATE 25 MG TABLET (FP) PO SCH ×2 (09:23→21:45)
[2021-10-09] MEDS: FERROUS SO4 325 MG TABLET (FP) PO SCH (09:23)
[2021-10-09] MEDS: DEXAMETHASONE SOD PHOSPHATE 10 MG/1 ML VIAL IVPUSH SCH (09:23)
[2021-10-09] MEDS: ATORVASTATIN CA 10 MG TABLET (FP) PO SCH (09:25)
[2021-10-09] MEDS: UMECLIDINIUM/VILANTEROL (ANORO) 62.5/25 MCG INHALER IH SCH (09:26)
[2021-10-09 09:38] LABS: ANISOCYTOSIS 0; HELMET CELLS 0; HOWELL-JOLLY BODIES 0; MACROCYTOSIS 0; OVALOCYTE 0; ROULEAU 0; SICKELED CELLS 0; TARGET CELLS 0; TEAR DROP CELLS 0; TOXIC GRANULATION 0
[2021-10-09 09:44] LABS: ERYTHROCYTE SEDIMENTATION RATE 101 mm/hr (0-30)
[2021-10-09] MEDS: ACETAMINOPHEN 500 MG TABLET (FP) PO PRN ×2 (10:28→21:52)
[2021-10-09] MEDS: guaiFENesin/D-METHORPHAN HB 10 ML UNIT-DOSE CUPS PO PRN ×2 (10:28→21:52)
[2021-10-09] MEDS ORDERED: FAMOTIDINE 10 MG TABLET PO PRN (16:03)
[2021-10-09] MEDS: MONTELUKAST NA 10 MG TABLET PO SCH (21:45)
[2021-10-09] MEDS: DOCUSATE SODIUM 100 MG CAPSULE (FP) PO SCH (21:45)
[2021-10-09] MEDS: ASCORBIC ACID 500 MG TABLET (FP) PO SCH (21:45)
[2021-10-10 07:39] LABS: CALCIUM 9.1 mg/dL (8.5-10.1)
[2021-10-10 07:40] LABS: BLOOD UREA NITROGEN 68.8 mg/dL (7-18)
[2021-10-10 07:43] LABS: CREATININE 1.5 mg/dL (0.55-1.3)
[2021-10-10] MEDS: CHOLECALCIFEROL (VIT D3) 1,000 UNIT (25 MCG) TABLET PO SCH (09:24)
[2021-10-10] MEDS: LOSARTAN POTASSIUM 25 MG TABLET PO SCH (09:24)
[2021-10-10] MEDS: APIXABAN 5 MG TABLET PO SCH (09:24)
[2021-10-10] MEDS: PREGABALIN 100 MG CAPSULE PO SCH (09:24)
[2021-10-10] MEDS: ATORVASTATIN CA 10 MG TABLET (FP) PO SCH (09:24)
[2021-10-10] MEDS: FERROUS SO4 325 MG TABLET (FP) PO SCH (09:24)
[2021-10-10] MEDS: FUROSEMIDE 40 MG/4 ML INJECTABLE VIAL IVPUSH SCH (09:24)
[2021-10-10] MEDS: METOPROLOL TARTRATE 25 MG TABLET (FP) PO SCH (09:24)
[2021-10-10] MEDS: ALLOPURINOL 100 MG TABLET (FP) PO SCH (09:25)
[2021-10-10] MEDS: UMECLIDINIUM/VILANTEROL (ANORO) 62.5/25 MCG INHALER IH SCH (09:25)
[2021-10-10] MEDS ORDERED: DEXAMETHASONE 4 MG TABLET (FP) PO SCH (10:00)
[2021-10-10] MEDS ORDERED: FAMOTIDINE 20 MG TABLET PO SCH (10:00)
[2021-10-10 14:14] VITALS: BP 125/73; PULSE 78; TEMP 98.1
[2021-10-11] MEDS ORDERED: FUROSEMIDE 20 MG TABLET (FP) PO SCH (10:00)
== END 2021-10-10 15:42 | disposition home health service (06) | DRG 291 ==
LOC: JER 22:06 → JERBED 23:35 → J4S 10-04 20:56
PROVIDERS: ADMIT Internal Medicine; ATTEND Internal Medicine
DX: I13.0 Hypertensive heart and chronic kidney disease with heart failure and stage 1 through stage 4 chronic kidney disease, or unspecified chronic kidney disease (principal); U07.1 COVID-19; I50.33 Acute on chronic diastolic (congestive) heart failure; J12.82 Pneumonia due to coronavirus disease 2019; N18.4 Chronic kidney disease, stage 4 (severe); J44.1 Chronic obstructive pulmonary disease with (acute) exacerbation; E87.1 Hypo-osmolality and hyponatremia; Z68.42 Body mass index [BMI] 45.0-49.9, adult; E87.70 Fluid overload, unspecified; D72.829 Elevated white blood cell count, unspecified; R09.02 Hypoxemia; D64.9 Anemia, unspecified; I27.20 Pulmonary hypertension, unspecified; G47.33 Obstructive sleep apnea (adult) (pediatric); J20.9 Acute bronchitis, unspecified; E66.01 Morbid (severe) obesity due to excess calories; I48.0 Paroxysmal atrial fibrillation
CPT/HCPCS: 36415; 71045-TC-FY; 71275-TC; 80048; 80053; 81003; 82272; 82607; 82728; 83540; 83550; 83605; 83615; 83735; 83880; 84100; 84484; 85025; 85379; 85610; 85651; 85730; 86140; 87086; 93005; 93010; 93306-TC; 93970-TC; 97116-GP; 97161-GP; 99285-25; C9803-CS; J1100; J1644; Q9967; U0003; U0005

== ENCOUNTER 2021-11-21 04:27 | Day surgery (SDC) | payer OTHER, MEDICARE ==
[2021-11-18 16:03] VITALS: BMI 45.3
[2021-11-21] MEDS ORDERED: MIDAZOLAM HCL 2 MG/2 ML SINGLE DOSE VIAL ONE (10:58)
[2021-11-21 11:29] VITALS: TEMP 98.2
[2021-11-21 12:08] VITALS: PULSE 65
[2021-11-21 12:32] VITALS: BP 122/65; RESP 14
== END 2021-11-21 13:05 | disposition home or self-care (01) ==
LOC: JASU-ENDO 04:27
PROVIDERS: ATTEND Internal Medicine Cardiovascular Disease
PROC: 5A2204Z Restoration of Cardiac Rhythm, Single (ICD-10-PCS; principal; 2021-11-21 11:00)
DX: I48.91 Unspecified atrial fibrillation (principal)
CPT/HCPCS: 92960; 93005; 93010

== ENCOUNTER 2023-07-21 00:58 | Inpatient (IN) | payer OTHER, MEDICARE ==
[2023-07-21] MEDS: SODIUM CHLORIDE 0.9% 500 ML INFUS.BAG IV ONE ×2 (03:09→04:19)
[2023-07-21] MEDS: PIPERACILLIN/TAZOBACTAM 4.5 GM VIAL IVPB ONE (03:12)
[2023-07-21] MEDS: ACETAMINOPHEN 1000 MG/100 ML BAG IVPB ONE (03:12)
[2023-07-21] MEDS ORDERED: ACETAMINOPHEN INJECTION 100 ML IVPB ONE (03:14)
[2023-07-21] MEDS ORDERED: PIPERACILLIN/TAZOB 4.5 GM 4.5 GM/100 ML BAG IVPB ONE (03:14)
[2023-07-21 03:31] LABS: HEMATOCRIT 32.5 % (32.4-45.2); HEMOGLOBIN 10.3 GM/dL (10.7-15.3); MCH 29.6 pg (25.7-33.7); MCHC 31.8 g/dl (32.0-36.0); MEAN CELL VOLUME 93.3 fl (80-96); MEAN PLT VOLUME 10.7 fl (7.5-11.1); PLATELET COUNT 138 10^3/uL (134-434); RBC 3.48 M/mm3 (3.60-5.2); RDW 19.1 % (11.6-15.6); WHITE BLOOD COUNT 24.2 K/mm3 (4.0-10.0)
[2023-07-21 03:34] LABS: VENOUS BASE EXCESS -4.2 mmol/L (-2-2); VENOUS O2 SATURATION 57.9 % (70-80); VENOUS PCO2 33.6 mmHg (38-52); VENOUS PH 7.393 (7.310-7.410)
[2023-07-21 03:43] LABS: POTASSIUM 3.6 mmol/L (3.5-5.1)
[2023-07-21 03:45] LABS: CALCIUM 9.5 mg/dL (8.5-10.1)
[2023-07-21 03:46] LABS: ALBUMIN 3.1 g/dl (3.4-5.0); BLOOD UREA NITROGEN 64.6 mg/dL (7-18)
[2023-07-21 03:50] LABS: BILIRUBIN,TOTAL 0.2 mg/dL (0.2-1); TOT PROT 5.8 g/dl (6.4-8.2)
[2023-07-21 03:56] LABS: INR 1.55 (0.83-1.09); PROTHROMBIN TIME (PATIENT) 17.3 SEC (9.7-13.0)
[2023-07-21 03:57] LABS: EPI CELLS 36 /uL (0-25.1); HYALINE CASTS 2 /uL (0-3.1); URINE APPEARANCE CLEAR; URINE BACTERIA 73 /uL (0-1359); URINE BILIRUBIN NEGATIVE (NEGATIVE); URINE COLOR DK YELLOW; URINE GLUCOSE (UA) NEGATIVE (NEGATIVE); URINE KETONE NEGATIVE (NEGATIVE); URINE LEUK ESTERASE 2+ (NEGATIVE); URINE NITRITE NEGATIVE (NEGATIVE); URINE PROTEIN TRACE (NEGATIVE); URINE RBC 25 /uL (0-23.9); URINE UROBILINOGEN 0.2 mg/dL (0.2-1.0); URINE WBC 51 /uL (0-25.8)
[2023-07-21 03:58] LABS: ACTIVATED PTT 41.2 SECONDS (25.2-36.5)
[2023-07-21] MEDS: VANCOMYCIN/WATER FOR INJ (PEG) 1,000 MG/200 ML BAG IVPB ONE (04:08)
[2023-07-21] MEDS ORDERED: VANCOMYCIN 1 GRAM (PRE-DOCKED) 1,000 MG/250 ML BAG IVPB ONE (04:09)
[2023-07-21 05:50] LABS: ANISOCYTOSIS 2+; MACROCYTOSIS 0; OVALOCYTE 1+; TARGET CELLS 1+
[2023-07-21] MEDS: LACTATED RINGERS SOLUTION 1,000 ML/1,000 ML INFUS.BAG IV STA (06:40)
[2023-07-21] MEDS ORDERED: PATIENT'S OWN MEDICATION (NON-FORMULARY) (Clobetasol Propionate/Emoll [Clobetasol Emollien TP PRN (06:52)
[2023-07-21 08:21] LABS: HEMATOCRIT 30.7 % (32.4-45.2); HEMOGLOBIN 9.4 GM/dL (10.7-15.3); MCH 29.2 pg (25.7-33.7); MCHC 30.7 g/dl (32.0-36.0); MEAN PLT VOLUME 10.6 fl (7.5-11.1); PLATELET COUNT 125 10^3/uL (134-434); RBC 3.23 M/mm3 (3.60-5.2); RDW 18.7 % (11.6-15.6); WHITE BLOOD COUNT 25.5 K/mm3 (4.0-10.0)
[2023-07-21 08:37] LABS: POTASSIUM 3.8 mmol/L (3.5-5.1)
[2023-07-21 08:39] LABS: ALBUMIN 2.7 g/dl (3.4-5.0); BLOOD UREA NITROGEN 56.1 mg/dL (7-18); MAGNESIUM 2.1 mg/dL (1.8-2.4)
[2023-07-21 08:40] LABS: CALCIUM 8.9 mg/dL (8.5-10.1)
[2023-07-21 08:42] LABS: CREATININE 1.9 mg/dL (0.55-1.3); PHOSPHOROUS 2.6 mg/dL (2.5-4.9)
[2023-07-21 08:43] LABS: BILIRUBIN,TOTAL 0.3 mg/dL (0.2-1); TOT PROT 5.4 g/dl (6.4-8.2)
[2023-07-21] MEDS: LACTATED RINGERS SOLUTION 1,000 ML/1,000 ML INFUS.BAG IV SCH ×2 (09:04→16:27)
[2023-07-21 09:34] LABS: ANISOCYTOSIS 0; HELMET CELLS 0; HOWELL-JOLLY BODIES 0; MACROCYTOSIS 0; OVALOCYTE 0; ROULEAU 0; SICKELED CELLS 0; TARGET CELLS 0; TEAR DROP CELLS 0; TOXIC GRANULATION 0
[2023-07-21] MEDS ORDERED: CHOLECALCIFEROL (VIT D3 5000 UNITS) 125 MCG TAB PO SCH (11:04)
[2023-07-21] MEDS ORDERED: METOPROLOL TARTRATE 25 MG TABLET (FP) ONE (11:07)
[2023-07-21] MEDS ORDERED: APIXABAN 5 MG TABLET ONE (11:07)
[2023-07-21] MEDS ORDERED: LORATADINE 10 MG TABLET ONE (11:08)
[2023-07-21] MEDS ORDERED: PREGABALIN 100 MG CAPSULE ONE (11:08)
[2023-07-21] MEDS ORDERED: CEFTRIAXONE 1 GM/50 ML BAG ONE (11:09)
[2023-07-21 11:11] LABS: TOTAL IRON BINDING CAPACITY 223 ug/dL (250-450)
[2023-07-21 11:12] LABS: IRON SERUM 9 ug/dL (50-175)
[2023-07-21] MEDS: APIXABAN 5 MG TABLET PO SCH (11:44)
[2023-07-21] MEDS: METOPROLOL TARTRATE 25 MG TABLET (FP) PO SCH (11:44)
[2023-07-21] MEDS: LORATADINE 10 MG TABLET PO SCH (11:44)
[2023-07-21] MEDS: CEFTRIAXONE 1 GM in DEXTROSE 5%-WATER - 50 ML IVPB SCH (11:44)
[2023-07-21] MEDS: PREGABALIN 75 MG CAPSULE PO SCH (11:44)
[2023-07-21] MEDS: VITAMIN B COMP W-C 1 EA TABLET (NEPHRO-VITE) PO SCH (12:34)
[2023-07-21] MEDS: ALLOPURINOL 100 MG TABLET (FP) PO SCH (12:34)
[2023-07-21] MEDS ORDERED: CEFTRIAXONE 2 GM/100 ML BAG IVPB ONE (13:49)
[2023-07-21] MEDS: CEFTRIAXONE 2 GM in DEXTROSE 5%-WATER 100 ML IVPB ONE (14:08)
[2023-07-21] MEDS: CHOLECALCIFEROL (VIT D3) 1,000 UNIT (25 MCG) TABLET PO SCH (16:28)
[2023-07-21] MEDS: PIPERACILLIN/TAZOB 3.375 GM 3.375 GM in DEXTROSE 5%-WATER - 50 ML IVPB SCH (16:28)
[2023-07-21] MEDS: MONTELUKAST NA 10 MG TABLET PO SCH (21:41)
[2023-07-21] MEDS: ATORVASTATIN CA 10 MG TABLET (FP) PO SCH (21:41)
[2023-07-21] MEDS: FAMOTIDINE 20 MG TABLET PO SCH (21:41)
[2023-07-21] MEDS ORDERED: PATIENT'S OWN MEDICATION (NON-FORMULARY) (Famotidine [Pepcid] 40 MG Tablet) PO SCH ×2 (22:00)
[2023-07-21] MEDS ORDERED: ATORVASTATIN CA 40 MG TABLET (FP) PO SCH (22:00)
[2023-07-22] MEDS: ACETAMINOPHEN 1000 MG/100 ML BAG IVPB PRN (01:47)
[2023-07-22 07:18] LABS: POTASSIUM 3.9 mmol/L (3.5-5.1)
[2023-07-22 07:21] LABS: HEMOGLOBIN 9.3 GM/dL (10.7-15.3); MCH 29.3 pg (25.7-33.7); MCHC 30.9 g/dl (32.0-36.0); MEAN CELL VOLUME 94.8 fl (80-96); MEAN PLT VOLUME 11.1 fl (7.5-11.1); PLATELET COUNT 116 10^3/uL (134-434); RBC 3.16 M/mm3 (3.60-5.2); WHITE BLOOD COUNT 18.1 K/mm3 (4.0-10.0)
[2023-07-22 07:27] LABS: ALBUMIN 2.3 g/dl (3.4-5.0); BLOOD UREA NITROGEN 47.6 mg/dL (7-18); CALCIUM 9.4 mg/dL (8.5-10.1)
[2023-07-22 07:28] LABS: MAGNESIUM 2.2 mg/dL (1.8-2.4)
[2023-07-22 07:30] LABS: CREATININE 1.4 mg/dL (0.55-1.3)
[2023-07-22 07:32] LABS: BILIRUBIN,TOTAL 0.4 mg/dL (0.2-1)
[2023-07-22] MEDS: SODIUM CHLORIDE 1,000 ML IV SCH (09:35)
[2023-07-22] MEDS: CHOLECALCIFEROL (VIT D3) 5000 UNITS (125 MCG) CAP PO SCH (09:36)
[2023-07-22] MEDS: CEFTRIAXONE 2 GM in DEXTROSE 5%-WATER 100 ML IVPB SCH (09:37)
[2023-07-22] MEDS ORDERED: CHOLECALCIFEROL (VIT D3 5000 UNITS) 125 MCG TAB PO SCH (10:00)
[2023-07-22] MEDS: ACETAMINOPHEN 500 MG TABLET (FP) PO PRN (16:25)
[2023-07-22] MEDS: FLUTICASONE/UMECLIDIN/VILANTER(200-62.5-25 TRELEGY ELLIPTA) INAHLER IH SCH (16:25)
[2023-07-23 07:40] LABS: BASO % 0.5 % (0-2.0); EOS % 4.3 % (0-4.5); HEMATOCRIT 30.3 % (32.4-45.2); HEMOGLOBIN 9.3 GM/dL (10.7-15.3); LYMPH % 9.3 % (8-40); MCH 29.2 pg (25.7-33.7); MCHC 30.7 g/dl (32.0-36.0); MEAN PLT VOLUME 11.2 fl (7.5-11.1); MONO % 12.7 % (3.8-10.2); NEUT % 73.2 % (42.8-82.8); PLATELET COUNT 115 10^3/uL (134-434); RBC 3.19 M/mm3 (3.60-5.2); RDW 19.4 % (11.6-15.6); WHITE BLOOD COUNT 11.8 K/mm3 (4.0-10.0)
[2023-07-23 07:53] LABS: POTASSIUM 4.2 mmol/L (3.5-5.1)
[2023-07-23 08:01] LABS: CALCIUM 9.7 mg/dL (8.5-10.1)
[2023-07-23 08:02] LABS: BLOOD UREA NITROGEN 37.3 mg/dL (7-18)
[2023-07-23 08:05] LABS: CREATININE 1.4 mg/dL (0.55-1.3)
[2023-07-23] MEDS: ACETAMINOPHEN/CAFFEINE/BUTALBITAL 1 TAB PO ONE ×3 (11:46→20:26)
[2023-07-23] MEDS: hydrALAZINE HCL 20 MG/ML VIAL IVPUSH ONE (20:35)
[2023-07-24 07:27] LABS: BASO % 0.5 % (0-2.0); EOS % 4.7 % (0-4.5); HEMATOCRIT 31.2 % (32.4-45.2); HEMOGLOBIN 9.8 GM/dL (10.7-15.3); LYMPH % 9.4 % (8-40); MCH 29.6 pg (25.7-33.7); MCHC 31.4 g/dl (32.0-36.0); MEAN CELL VOLUME 94.3 fl (80-96); MEAN PLT VOLUME 11.3 fl (7.5-11.1); MONO % 12.5 % (3.8-10.2); NEUT % 72.9 % (42.8-82.8); PLATELET COUNT 151 10^3/uL (134-434); RBC 3.31 M/mm3 (3.60-5.2); WHITE BLOOD COUNT 11.5 K/mm3 (4.0-10.0)
[2023-07-24 07:35] LABS: POTASSIUM 4.2 mmol/L (3.5-5.1)
[2023-07-24 07:47] LABS: CALCIUM 10.1 mg/dL (8.5-10.1)
[2023-07-24 07:48] LABS: ALBUMIN 2.5 g/dl (3.4-5.0); BLOOD UREA NITROGEN 30.4 mg/dL (7-18)
[2023-07-24 07:50] LABS: CREATININE 1.4 mg/dL (0.55-1.3)
[2023-07-24 07:51] LABS: BILIRUBIN,TOTAL 0.6 mg/dL (0.2-1); TOT PROT 5.6 g/dl (6.4-8.2)
[2023-07-24] MEDS: PREGABALIN 100 MG CAPSULE PO SCH (10:18)
[2023-07-24 11:39] VITALS: RESP 18
[2023-07-24] MEDS ORDERED: ACETAMINOPHEN/CAFFEINE/BUTALBITAL 1 TAB PO PRN (14:14)
[2023-07-24] MEDS ORDERED: PATIENT'S OWN MEDICATION (NON-FORMULARY) (Clobetasol Propionate/Emoll [Clobetasol Emollien TP PRN (14:27)
[2023-07-24] MEDS ORDERED: ACETAMINOPHEN 500 MG TABLET (FP) PO PRN (14:27)
[2023-07-24] MEDS: ACETAMINOPHEN/CAFFEINE/BUTALBITAL 1 TAB PO ONE (19:35)
[2023-07-24] MEDS: ATORVASTATIN CA 10 MG TABLET (FP) PO SCH (21:18)
[2023-07-24] MEDS: MONTELUKAST NA 10 MG TABLET PO SCH (21:18)
[2023-07-24] MEDS: hydrALAZINE HCL 25 MG TABLET (FP) PO SCH (21:19)
[2023-07-24] MEDS: METOPROLOL TARTRATE 25 MG TABLET (FP) PO SCH (21:19)
[2023-07-24] MEDS: APIXABAN 5 MG TABLET PO SCH (21:19)
[2023-07-24] MEDS: FAMOTIDINE 20 MG TABLET PO SCH (21:19)
[2023-07-24] MEDS: ALLOPURINOL 100 MG TABLET (FP) PO SCH (21:20)
[2023-07-25 10:18] LABS: BASO % 0.6 % (0-2.0); EOS % 7.9 % (0-4.5); HEMATOCRIT 32.3 % (32.4-45.2); HEMOGLOBIN 10.1 GM/dL (10.7-15.3); LYMPH % 8.8 % (8-40); MCH 29.6 pg (25.7-33.7); MCHC 31.2 g/dl (32.0-36.0); MEAN PLT VOLUME 11.3 fl (7.5-11.1); MONO % 10.3 % (3.8-10.2); NEUT % 72.4 % (42.8-82.8); PLATELET COUNT 174 10^3/uL (134-434); RDW 19.3 % (11.6-15.6); WHITE BLOOD COUNT 10.5 K/mm3 (4.0-10.0)
[2023-07-25] MEDS: LORATADINE 10 MG TABLET PO SCH (10:25)
[2023-07-25] MEDS: CHOLECALCIFEROL (VIT D3) 5000 UNITS (125 MCG) CAP PO SCH (10:25)
[2023-07-25] MEDS: CEFTRIAXONE 2 GM in DEXTROSE 5%-WATER 100 ML IVPB SCH (10:25)
[2023-07-25] MEDS: FLUTICASONE/UMECLIDIN/VILANTER(200-62.5-25 TRELEGY ELLIPTA) INAHLER IH SCH (10:26)
[2023-07-25] MEDS: VITAMIN B COMP W-C 1 EA TABLET (NEPHRO-VITE) PO SCH (10:26)
[2023-07-25 10:33] LABS: POTASSIUM 4.2 mmol/L (3.5-5.1)
[2023-07-25 10:37] LABS: CALCIUM 10.4 mg/dL (8.5-10.1)
[2023-07-25 10:38] LABS: ALBUMIN 2.6 g/dl (3.4-5.0); BLOOD UREA NITROGEN 26.4 mg/dL (7-18); MAGNESIUM 2.2 mg/dL (1.8-2.4)
[2023-07-25 10:41] LABS: CREATININE 1.2 mg/dL (0.55-1.3); PHOSPHOROUS 3.8 mg/dL (2.5-4.9)
[2023-07-25 10:42] LABS: BILIRUBIN,TOTAL 0.3 mg/dL (0.2-1); TOT PROT 5.7 g/dl (6.4-8.2)
[2023-07-25] MEDS ORDERED: ALBUTEROL SO4 0.083% IH SOL 2.5 MG/3 ML VIAL.NEB. NEB PRN (11:52)
[2023-07-25 12:48] VITALS: BMI 43.0
[2023-07-25] MEDS: hydrALAZINE HCL 25 MG TABLET (FP) PO SCH ×2 (13:27→21:51)
[2023-07-25] MEDS: ACETAMINOPHEN/CAFFEINE/BUTALBITAL 1 TAB PO PRN (14:58)
[2023-07-25] MEDS: FUROSEMIDE 20 MG TABLET (FP) PO ONE (17:39)
[2023-07-26 08:30] LABS: HEMATOCRIT 27.4 % (32.4-45.2); MCH 30.7 pg (25.7-33.7); MCHC 32.9 g/dl (32.0-36.0); MEAN CELL VOLUME 93.5 fl (80-96); MEAN PLT VOLUME 10.7 fl (7.5-11.1); PLATELET COUNT 176 10^3/uL (134-434); RBC 2.93 M/mm3 (3.60-5.2); WHITE BLOOD COUNT 9.3 K/mm3 (4.0-10.0)
[2023-07-26 08:33] LABS: POTASSIUM 4.3 mmol/L (3.5-5.1)
[2023-07-26 08:51] LABS: CALCIUM 9.7 mg/dL (8.5-10.1)
[2023-07-26 08:52] LABS: ALBUMIN 2.3 g/dl (3.4-5.0); BLOOD UREA NITROGEN 24.9 mg/dL (7-18)
[2023-07-26 08:55] LABS: CREATININE 1.3 mg/dL (0.55-1.3)
[2023-07-26 08:56] LABS: BILIRUBIN,TOTAL 0.3 mg/dL (0.2-1)
[2023-07-26] MEDS: FUROSEMIDE 40 MG TABLET (FP) PO SCH (10:26)
[2023-07-26 12:05] VITALS: BP 136/86; PULSE 64; TEMP 97.7
[2023-07-26] MEDS: ALBUTEROL SO4 0.083% IH SOL 2.5 MG/3 ML VIAL.NEB. NEB SCH (12:07)
[2023-07-27] MEDS ORDERED: FUROSEMIDE 20 MG TABLET (FP) PO SCH (10:00)
== END 2023-07-26 13:01 | disposition home or self-care (01) | DRG 872 ==
LOC: JER 00:58 → JERBED 04:19 → J4W 18:33 → J5S 07-24 14:22
PROVIDERS: ADMIT Internal Medicine; ATTEND Internal Medicine
DX: A41.89 Other specified sepsis (principal); I13.0 Hypertensive heart and chronic kidney disease with heart failure and stage 1 through stage 4 chronic kidney disease, or unspecified chronic kidney disease; N18.4 Chronic kidney disease, stage 4 (severe); I50.22 Chronic systolic (congestive) heart failure; N17.9 Acute kidney failure, unspecified; L03.116 Cellulitis of left lower limb; I24.89 Other forms of acute ischemic heart disease; R00.0 Tachycardia, unspecified; R65.20 Severe sepsis without septic shock; J44.9 Chronic obstructive pulmonary disease, unspecified; D72.829 Elevated white blood cell count, unspecified; G50.0 Trigeminal neuralgia; G47.33 Obstructive sleep apnea (adult) (pediatric); R33.9 Retention of urine, unspecified; L40.9 Psoriasis, unspecified; Z96.653 Presence of artificial knee joint, bilateral; D63.1 Anemia in chronic kidney disease; E78.5 Hyperlipidemia, unspecified; R50.9 Fever, unspecified; K59.00 Constipation, unspecified; I48.91 Unspecified atrial fibrillation; M10.9 Gout, unspecified; Z86.711 Personal history of pulmonary embolism
CPT/HCPCS: 0241U-QW; 36415; 71045-TC-FY; 71250-TC; 74176-TC; 80048; 80053; 81003; 82272; 82570; 82728; 82803; 83540; 83550; 83605; 83735; 84100; 84300; 84466; 84484; 84540; 85025; 85027; 85045; 85610; 85730; 87040; 87081; 87086; 87635; 87899; 93005; 93010; 94640; 97116-GP; 97162-GP; 99285-25; G0480; J0131